=== PATIENT | female | born 1940 | race Caucasian/White ===

== ENCOUNTER → 2016-11-16 | Outpatient (CLI) | payer BC ==
[~2016-11-16] MED LIST: ANTI-ANXIETY MED PO; CHOL1000 PO; CYAN250T PO; DULO-24 PO; LEVO25TA PO; MULT-513 PO; OXYC-57 PO; PROM25TA9 PO
== END | disposition home or self-care (01) ==
LOC: C.MAMM 10:28
PROVIDERS: ATTEND Family Medicine
DX: M72.2 Plantar fascial fibromatosis (principal); M85.88 Other specified disorders of bone density and structure, other site

== ENCOUNTER → 2017-01-26 | Outpatient (CLI) | payer BC ==
--- NOTE | 2017-01-26 15:49 | MAMMOGRAPHY REPORT ---
BILATERAL DIGITAL SCREENING MAMMOGRAM WITH CAD: 01/26/2017 CLINICAL HISTORY: Routine screening. Patient has no complaints. TECHNIQUE: Bilateral CC and MLO views were obtained. Current study was also evaluated with a Comput er Aided Detection (CAD) system. COMPARISON: Comparison is made to exams dated: 11/03/2015 mammogram, 10/28/2014 mammogram, 10/25/2013 ma mmogram, 10/23/2012 mammogram, 10/18/2011 mammogram, and 10/08/2010 mammogram - [facility] enter. BREAST COMPOSITION: There are scattered areas of fibroglandular density in both breasts. FINDINGS: The parenchymal pattern is unchanged. No developing mass, architectural distortion or clu ster of suspicious microcalcifications is seen in either breast. IMPRESSION: ACR BI-RADS CATEGORY 2: BENIGN There is no mammographic evidence of malignancy. A 1 year screening mammogram is recommended. The p atient will receive written notification of the results. Approximately 10% of breast cancers are not detected with mammography. A negative mammographic repor t should not delay biopsy if a clinically suggestive mass is present. Janay Lopez M.D. ay/:01/26/2017 14:23:25 Fireman: Aruna SAMANO(Christos)(Dax), [facility] letter sent: Normal 1/2 BI-RADS Code: ACR BI-RADS Category 2: Benign
== END | disposition home or self-care (01) ==
LOC: C.MAMM 13:34
PROVIDERS: ATTEND Family Medicine
DX: Z12.31 Encounter for screening mammogram for malignant neoplasm of breast (principal)

== ENCOUNTER 2017-02-06 15:07 | Emergency (ER) | payer BC ==
[~2017-02-06] VITALS: Ht 157.5 cm; Wt 76.8 kg
[~2017-02-06 15:07] MED LIST changes: -ANTI-ANXIETY MED PO; -CHOL1000 PO; -CYAN250T PO; -MULT-513 PO; -OXYC-57 PO; -PROM25TA9 PO
[2017-02-06 15:08] VITALS: PULSE 102; TEMP 36.7; O2SAT 96; Ht 157.5 cm; Wt 76.8 kg
[2017-02-06] MEDS ORDERED: MULT-513 PO (15:44)
[2017-02-06] MEDS ORDERED: CYAN250T PO (15:44)
[2017-02-06] MEDS ORDERED: CHOL1000 PO (15:44)
[2017-02-06] MEDS ORDERED: ANTI-ANXIETY MED PO (15:44)
[2017-02-06] MEDS ORDERED: LIDOCAINE/EPINEPHRINE 1% 20 ML VIAL INFIL ONE (15:45)
--- NOTE | 2017-02-06 17:07 | EMERGENCY ROOM VISIT NOTE ---
ED Visit Note I have seen and examined this patient with Vincent Terrazas and generally agree with the treatment plan as discussed. Problem List Medical Problems: (1) Depressive Disorder Nec Status: Chronic (2) Hypothyroidism Nos Status: Chronic (3) Lumbar Disc Displacement Status: Chronic (4) Osteoporosis Status: Chronic Current/Historical Medications Scheduled Cholecalciferol (Vitamin D3), Unknown Dose PO DAILY Cyanocobalamin (Vitamin B-12), 250 MCG PO DAILY Duloxetine HCl (Cymbalta), 1 CAP PO PM Levothyroxine Sodium (Synthroid), 1 TAB PO PM Multivitamins/Minerals (Mvi With Minerals), 1 TAB PO DAILY [Anti-Anxiety Med], 1 TAB PO PRN Allergies Coded Allergies: Sulfa Drugs (Verified Allergy, Intermediate, RASH, 07/16/16) Penicillins (Unverified Allergy, Mild, RASH, 07/16/16) Erythromycin (Unverified Allergy, Unknown, RASH, 07/16/16) Vital Signs Date Time Temp Pulse Resp B/P Pulse Ox O2 Delivery O2 Flow Rate FiO2 02/06/17 15:08 36.7 102 20 96 Room Air Medications Administered Medications (Trade) Dose Ordered Sig/Kenneth Route Start Time Stop Time Status Last Admin Dose Admin Lidocaine/ Epinephrine (Xylocaine/Epine 1% Inj) 20 ml ONE ONCE INFIL 02/06/17 15:45 02/06/17 15:46 DC 02/06/17 15:44 20 ML Departure Information Impression Primary Impression: Left wrist sprain Additional Impressions: Multiple abrasions Fall Laceration of right elbow Dispostion Home / Self-Care Forms HOME CARE DOCUMENTATION FORM, IMPORTANT VISIT INFORMATION Patient Instructions My [facility] Additional Instructions Keep all wounds clean and covered with an antibiotic ointment and dressings until they heal. Sutures in the right elbow will need to be removed in 12-14 days. Follow-up with your family doctor for suture removal. Wear wrist brace on left wrist as needed when active, otherwise perform range of motion exercises to prevent stiffness. Follow-up with an orthopedic surgeon as needed if left wrist pain has not improved within the next week. Problem Qualifiers
--- NOTE | 2017-02-06 17:15 | DIAGNOSTIC IMAGING REPORT ---
LEFT WRIST 4 VIEWS HISTORY: L wrist pain s/p fall COMPARISON: None. FINDINGS: There is no fracture or dislocation. Mild soft tissue swelling. Severe osteoarthritis and periarticular calcifications at the first carpometacarpal joint. The bones are osteopenic. No radiopaque foreign bodies. IMPRESSION: No acute fracture or dislocation within the left wrist. Electronically signed by: Fidel Mercedes M.D. 02/06/2017 5:13 PM Dictated Date/Time: 02/06/2017 5:12 PM
--- NOTE | 2017-02-06 17:17 | EMERGENCY ROOM VISIT NOTE ---
History First contact with patient: 15:19 Chief Complaint: WRIST PAIN Stated Complaint: LEFT WRIST PAIN, MINOR SCRAPES FROM A FALL History of Present Illness The patient is a 76 year old female who presents to the Emergency Room with complaints of injuries after she fell while walking her dog. The patient reports losing her balance and falling, complaining mostly of left wrist pain. She also complains of multiple abrasions and lacerations with a cut on her right elbow that will not stop bleeding. The patient denies any head injury, neck pain or back pain. She does report a small laceration on the nose as well. Tetanus immunization is up-to-date. The patient rates her overall discomfort a 4 out of 10. Review of Systems 10 system review was performed and was negative except for pertinent positives and negatives as indicated in history of present illness Past Medical/Surgical History Medical Problems: (1) Depressive Disorder Nec (2) Hypothyroidism Nos (3) Lumbar Disc Displacement (4) Osteoporosis Family History Unremarkable Social History Smoking Status: Never Smoker Alcohol Use: none Marital Status: Housing Status: lives alone Occupation Status: retired Current/Historical Medications Scheduled Cholecalciferol (Vitamin D3), Unknown Dose PO DAILY Cyanocobalamin (Vitamin B-12), 250 MCG PO DAILY Duloxetine HCl (Cymbalta), 1 CAP PO PM Levothyroxine Sodium (Synthroid), 1 TAB PO PM Multivitamins/Minerals (Mvi With Minerals), 1 TAB PO DAILY [Anti-Anxiety Med], 1 TAB PO PRN Allergies Coded Allergies: Sulfa Drugs (Verified Allergy, Intermediate, RASH, 07/16/16) Penicillins (Unverified Allergy, Mild, RASH, 07/16/16) Erythromycin (Unverified Allergy, Unknown, RASH, 07/16/16) Physical Exam Vital Signs Date Time Temp Pulse Resp B/P Pulse Ox O2 Delivery O2 Flow Rate FiO2 02/06/17 15:08 36.7 102 20 96 Room Air Physical Exam CONSTITUTIONAL: Healthy and well nourished. Alert and oriented X 3 with positive affect. Patient does not appear in any acute distress. GCS 15. HEENT: Examination shows a small laceration on the bridge of the nose. Pupils equal, round and reactive. No tenderness to palpation of the facial bones. No hemotympanum, epistaxis, raccoon's eyes or Conteh sign. NECK: Full active range of motion without discomfort. RESPIRATORY: Clear to auscultation bilaterally with no wheezing, crackles, rhonchi or stridor. CARDIOVASCULAR: Regular rate and rhythm with no murmurs, rubs or gallops. GASTROINTESTINAL: Bowel sounds present in all quadrants. Soft and nontender to palpation. MUSCULOSKELETAL: Examination shows mild edema of the left wrist without any obvious open wounds or deformity. She also has generalized tenderness to palpation about the entire wrist. Negative anatomic snuffbox tenderness. No worsening pain with flexion or extension of the elbow. Examination of the right elbow shows a 1 m posterior laceration with mild bleeding. She otherwise has multiple abrasions to the elbows, bilateral knees and hands. No tenderness to palpation through the thoracolumbar spine or ribs. His pulses are intact. INTEGUMENTARY: No rash or other significant dermatologic conditions noted. NEUROLOGIC: Bilateral hands are sensory intact. Medical Decision & Procedures ER Provider Diagnostic Interpretation: My interpretation of left wrist x-rays does not show any obvious fractures or dislocations. Radiologist report is as follows: LEFT WRIST 4 VIEWS HISTORY: L wrist pain s/p fall COMPARISON: None. FINDINGS: There is no fracture or dislocation. Mild soft tissue swelling. Severe osteoarthritis and periarticular calcifications at the first carpometacarpal joint. The bones are osteopenic. No radiopaque foreign bodies. IMPRESSION: No acute fracture or dislocation within the left wrist. Medications Administered Medications (Trade) Dose Ordered Sig/Kenneth Route Start Time Stop Time Status Last Admin Dose Admin Lidocaine/ Epinephrine (Xylocaine/Epine 1% Inj) 20 ml ONE ONCE INFIL 02/06/17 15:45 02/06/17 15:46 DC 02/06/17 15:44 20 ML Procedure Right elbow laceration repair was performed under local anesthesia after receiving verbal consent from the patient. Using lidocaine 1% with epinephrine , good local anesthesia was administered. The tissue was then irrigated with normal saline, and approximated with a single 4-0 nylon simple interrupted suture. A bacitracin pressure dressing was applied. ED Course Patient history and physical exam were performed. Nurse's notes were reviewed. The patient refused any analgesics. X-rays of the left wrist were performed, and my review did not show any acute fractures or subluxations. While awaiting for the radiologist report, right elbow laceration repair was performed under local anesthesia. The patient did have a few episodes of bleeding through the gauze before a nice pressure dressing was applied. The patient was also seen and examined by Dr. Maradiaga, ED attending physician, who agrees with current workup. While we were awaiting the final radiologist's report for the left wrist, the patient reported that she had to go for a dinner appointment, and eloped from the emergency department before I could provide any additional instructions, wrist splint or follow-up instructions. X-ray findings were normal. Prior to elopement, I did provide verbal wound care instructions, including following up with her family doctor for suture removal in 12-14 days. Medical Decision Impression Primary Impression: Left wrist sprain Additional Impressions: Multiple abrasions Fall Laceration of right elbow Departure Information Dispostion Home / Self-Care Forms HOME CARE DOCUMENTATION FORM, IMPORTANT VISIT INFORMATION Patient Instructions My [email or web address] Additional Instructions Keep all wounds clean and covered with an antibiotic ointment and dressings until they heal. Sutures in the right elbow will need to be removed in 12-14 days. Follow-up with your family doctor for suture removal. Wear wrist brace on left wrist as needed when active, otherwise perform range of motion exercises to prevent stiffness. Follow-up with an orthopedic surgeon as needed if left wrist pain has not improved within the next week. Problem Qualifiers Primary Impression: Left wrist sprain Encounter type: initial encounter Qualified Codes: S63.502A - Unspecified sprain of left wrist, initial encounter Additional Impressions: Fall Encounter type: initial encounter Qualified Codes: W19.XXXA - Unspecified fall, initial encounter Laceration of right elbow Encounter type: initial encounter Qualified Codes: S51.011A - Laceration without foreign body of right elbow, initial encounter
== END 2017-02-06 17:30 | disposition home or self-care (01) ==
LOC: C.EDB 15:08 → C.EDD 17:30
DX: S63.502A Unspecified sprain of left wrist, initial encounter (principal); S51.011A Laceration without foreign body of right elbow, initial encounter; W01.0XXA Fall on same level from slipping, tripping and stumbling without subsequent striking against object, initial encounter; F32.9 Major depressive disorder, single episode, unspecified; E03.9 Hypothyroidism, unspecified; M81.0 Age-related osteoporosis without current pathological fracture; M51.26 Other intervertebral disc displacement, lumbar region; Z79.899 Other long term (current) drug therapy; Z88.0 Allergy status to penicillin; Z88.2 Allergy status to sulfonamides; Z88.3 Allergy status to other anti-infective agents

== ENCOUNTER → 2018-01-07 | Outpatient (CLI) | payer BC ==
[~2018-01-07] MED LIST changes: +ANTI-ANXIETY MED PO; +CHOL1000 PO; +CYAN250T PO; +MULT-513 PO
--- NOTE | 2018-01-07 13:35 | DIAGNOSTIC IMAGING REPORT ---
L SHOULDER MIN 2 VIEWS ROUTINE CLINICAL HISTORY: SHOULDER PAIN COMPARISON: None DISCUSSION: No fractures or dislocations are visualized. Degenerative changes are present within the acromioclavicular joint. There are mild degenerative changes within the glenohumeral joint. IMPRESSION: 1. Mild degenerative change. No fractures or dislocations identified. Electronically signed by: Miky Moreno M.D. 01/07/2018 1:33 PM Dictated Date/Time: 01/07/2018 1:33 PM
== END | disposition home or self-care (01) ==
LOC: C.RAD 12:51
PROVIDERS: ATTEND Family Medicine
DX: M25.519 Pain in unspecified shoulder (principal)

== ENCOUNTER → 2018-04-25 | Outpatient (CLI) | payer BC | END | disposition home or self-care (01) | LOC: C.RDSM 11:35 | PROVIDERS: ATTEND Orthopaedic Surgery | DX: M79.642 Pain in left hand (principal) ==

== ENCOUNTER 2018-11-13 12:37 | Inpatient (IN) ==
[2018-11-13] MEDS ORDERED: MoRPHine SULFATE 4 MG/ML 1 ML CARP\\VIAL IV STA (13:19)
[2018-11-13] MEDS ORDERED: ONDANSETRON INJ 2 MG/ML 2 ML VIAL IV STA ×2 (13:19→15:13)
[2018-11-13 14:03] LABS: Hematocrit (blood only) 43.3 % (37-47); Hemoglobin 14.1 g/dL (12.0-16.0); Mean Corpuscular Hgb Conc 32.6 g/dL (32-36); Mean Corpuscular Volume 90.8 fL (80-100); Mean Platelet Volume 12.5 fL (7.4-10.4); Platelet Count 188 K/uL (130-400); RDW Coefficient of Variation 14.6 % (11.5-14.5); RDW Standard Deviation 48.2 fL (36.4-46.3); Red Blood Count 4.77 M/uL (4.2-5.4)
[2018-11-13 14:21] LABS: BUN Creatinine Ratio 18.7 (10-20); Creatinine Clr Calc Pharmacy 67.2 ml/min; Est GFR (African American) 97.9; Est GFR (Non-African American) 84.4; Potassium 3.9 mmol/L (3.5-5.1)
--- NOTE | 2018-11-13 14:38 | XRay Report ---
XR chest 1V portable HISTORY: Pre-op COMPARISON: Chest 07/29/2016. FINDINGS: There are low lung volumes. Hazy appears to the left lung base persists and favors prominen t mediastinal fat. Otherwise, the lungs are clear. No pleural effusions. No pneumothorax. The heart i s normal in size. IMPRESSION: No acute process. Electronically signed by: Fidel Mercedes M.D. 11/13/2018 2:37 PM
--- NOTE | 2018-11-13 14:39 | XRay Report ---
XR ankle LT min 3V routine CLINICAL HISTORY: Left ankle pain status post trauma COMPARISON: None DISCUSSION: There are acute fractures of the medial malleolus and distal fibula. There is disruption of the ankle mortise with posterior lateral displacement of the talus with respect to the tibia. IMPRESSION: Bimalleolar fracture subluxation. Electronically signed by: Miky Moreno M.D. 11/13/2018 2:38 PM
[2018-11-13] MEDS ORDERED: SODIUM CHLORIDE 0.9% 1000ML 500 ML IV ONE (14:40)
--- NOTE | 2018-11-13 14:45 | XRay Report ---
XR tibia fibula LT 2V CLINICAL HISTORY: L ankle/leg pain COMPARISON STUDY: Left ankle 11/13/2018. FINDINGS: Bimalleolar left ankle fracture with posterior medial dislocation of the tibiotalar joint. This is better appreciated on the same day ankle radiograph. The proximal to mid fibula and proximal to mid tibia are intact. IMPRESSION: 1. Left ankle bimalleolar fracture/dislocation. This is better appreciated on the same day ankle radi ograph. 2. The proximal to mid fibula and tibia are intact. Electronically signed by: Fidel Mercedes M.D. 11/13/2018 2:44 PM
[2018-11-13] MEDS ORDERED: PROPOFOL IV EMULSION 10 MG/ML 20 ML VIAL IV ONE (15:13)
[2018-11-13] MEDS ORDERED: PROPOFOL IV EMULSION 10 MG/ML 20 ML VIAL IV STA (15:13)
--- NOTE | 2018-11-13 15:15 | Emergency Department Note ---
ED Visit Note . Pre Sedation Assessment Vital Signs Temp Pulse Pulse Resp BP BP BP 11/13/18 17:15 37.1 C 76 16 126/77 11/13/18 16:41 20 118/77 11/13/18 16:36 78 138/61 11/13/18 16:31 60 124/67 11/13/18 16:30 69 11/13/18 16:26 63 128/58 L 11/13/18 16:21 82 141/64 H 11/13/18 16:16 140/74 11/13/18 16:12 121/62 11/13/18 16:06 69 144/61 H 11/13/18 16:01 80 158/80 H 11/13/18 16:00 82 11/13/18 15:56 75 156/67 H 11/13/18 15:51 152/69 H 11/13/18 15:46 104 H 143/69 H 11/13/18 15:40 64 147/70 H 11/13/18 15:31 63 152/80 H 11/13/18 15:30 72 11/13/18 15:28 80 135/85 11/13/18 15:01 76 15 118/98 11/13/18 15:00 71 20 11/13/18 14:31 66 8 L 171/104 H 11/13/18 14:30 75 11 L 11/13/18 14:27 106 H 20 184/103 H 11/13/18 14:24 80 12 184/103 H 11/13/18 14:01 80 18 157/102 H 11/13/18 14:00 78 17 11/13/18 13:39 63 17 11/13/18 13:36 67 22 164/90 H 11/13/18 12:56 36.8 C 70 20 146/84 H Pulse Ox 11/13/18 17:15 92 11/13/18 16:41 95 11/13/18 16:36 93 11/13/18 16:31 94 11/13/18 16:30 94 11/13/18 16:26 94 11/13/18 16:21 96 11/13/18 16:16 100 11/13/18 16:12 99 11/13/18 16:06 98 11/13/18 16:01 99 11/13/18 16:00 99 11/13/18 15:56 98 11/13/18 15:51 98 11/13/18 15:46 97 11/13/18 15:40 99 11/13/18 15:31 98 11/13/18 15:30 98 11/13/18 15:28 99 11/13/18 15:01 11/13/18 15:00 92 11/13/18 14:31 96 11/13/18 14:30 95 11/13/18 14:27 96 11/13/18 14:24 90 11/13/18 14:01 95 11/13/18 14:00 95 11/13/18 13:39 96 11/13/18 13:36 93 11/13/18 12:56 96 Pre-Sedation Airway Assessment Smoking Status: Former smoker Notes The planned sedation has been discussed with the patient. Informed Consent was obtained. I have identified the patient, determined the appropriateness of sedation and have assessed the patient immediately prior to the procedure. All medicine(s) and interventions are by my order. No cardiac or lung medical history noted. NPO 8 hours. No prior anesthetic complications. Mallampati 2. ASA class II given age.
--- NOTE | 2018-11-13 15:16 | Emergency Department Note ---
ED Visit Note . Post Sedation Assessment Vital Signs Temp Pulse Pulse Resp BP BP BP 11/13/18 17:15 37.1 C 76 16 126/77 11/13/18 16:41 20 118/77 11/13/18 16:36 78 138/61 11/13/18 16:31 60 124/67 11/13/18 16:30 69 11/13/18 16:26 63 128/58 L 11/13/18 16:21 82 141/64 H 11/13/18 16:16 140/74 11/13/18 16:12 121/62 11/13/18 16:06 69 144/61 H 11/13/18 16:01 80 158/80 H 11/13/18 16:00 82 11/13/18 15:56 75 156/67 H 11/13/18 15:51 152/69 H 11/13/18 15:46 104 H 143/69 H 11/13/18 15:40 64 147/70 H 11/13/18 15:31 63 152/80 H 11/13/18 15:30 72 11/13/18 15:28 80 135/85 11/13/18 15:01 76 15 118/98 11/13/18 15:00 71 20 11/13/18 14:31 66 8 L 171/104 H 11/13/18 14:30 75 11 L 11/13/18 14:27 106 H 20 184/103 H 11/13/18 14:24 80 12 184/103 H 11/13/18 14:01 80 18 157/102 H 11/13/18 14:00 78 17 11/13/18 13:39 63 17 11/13/18 13:36 67 22 164/90 H 11/13/18 12:56 36.8 C 70 20 146/84 H Pulse Ox 11/13/18 17:15 92 11/13/18 16:41 95 11/13/18 16:36 93 11/13/18 16:31 94 11/13/18 16:30 94 11/13/18 16:26 94 11/13/18 16:21 96 11/13/18 16:16 100 11/13/18 16:12 99 11/13/18 16:06 98 11/13/18 16:01 99 11/13/18 16:00 99 11/13/18 15:56 98 11/13/18 15:51 98 11/13/18 15:46 97 11/13/18 15:40 99 11/13/18 15:31 98 11/13/18 15:30 98 11/13/18 15:28 99 11/13/18 15:01 11/13/18 15:00 92 11/13/18 14:31 96 11/13/18 14:30 95 11/13/18 14:27 96 11/13/18 14:24 90 11/13/18 14:01 95 11/13/18 14:00 95 11/13/18 13:39 96 11/13/18 13:36 93 11/13/18 12:56 96 Post Sedation Plan On clinical assessment, the patient appears to have tolerated the sedation without complications. Patient is recovering as anticipated. Patient will continue to be monitored by nursing and may be discharged when sedation discharge criteria are met per below protocol. Upon Completions of procedure and additional 15 minutes continue every 5 minute vital signs and the P.A.R. score; then discharge to a Phase I or Fast Track to Phase II per the following guidelines: * Discharge Patient to appropriate Phase II area if PAR is 8 or greater or return to pre- procedure baseline. The post - procedure orders will be as directed. * If PAR score is less than 8 or not return to pre-procedure baseline then patient will follow Phase I monitoring till PAR is reached for Phase II. The Phase I may be done in procedure room or may call to secure a Phase I area. * If naloxone or flumazenil are used for reversal, hold in Phase I for continued monitoring from when last reversal dose was given for a minimum of 60 minutes or longer pending the nurse and/or physician discretion of patient condition before discharge to Phase II. Please call the Sedation Physician to re-evaluate and complete post-note for discharge to Phase II area. Do NOT discharge from procedure sedation or Phase 1 until post- sedation evaluation note is complete by procedure /sedation MD Sedation Discharge Instructions to be given to the patient at discharge to home.
--- NOTE | 2018-11-13 15:16 | Emergency Department Note ---
ED Visit Note Attending Attestation: I Ady De Jesus MD independently saw and evaluated this patient and agree with history and physical is otherwise documented by the physician department assistant. See their note for full details. .
[2018-11-13] MEDS ORDERED: DiphenhydrAMINE HCL 50 MG/ML VIAL IV PRN (15:46)
[2018-11-13] MEDS ORDERED: METOCLOPRAMIDE HCL INJ 5 MG/ML 2 ML VIAL IV PRN (15:46)
[2018-11-13] MEDS ORDERED: ONDANSETRON INJ 2 MG/ML 2 ML VIAL IV PRN (15:46)
[2018-11-13] MEDS ORDERED: ALUMINUM/MAGNESIUM SUSP 30 ML UDC PO PRN (15:51)
[2018-11-13] MEDS ORDERED: MoRPHine SULFATE 4 MG/ML 1 ML CARP\\VIAL IV PRN (16:00)
--- NOTE | 2018-11-13 16:04 | XRay Report ---
XR ankle LT 2V CLINICAL HISTORY: post reduction FRACTURE COMPARISON: 11/13/2018 DISCUSSION: There is been interval reduction of the previously described bimalleolar fracture subluxa tion. There is been application of a fiberglass cast. The distal fibular fracture demonstrates 4 mm o f maximal displacement. The medial malleolar fracture is in near normal anatomic alignment. Very donya r widening of the medial ankle mortise cannot be excluded. IMPRESSION: Interval reduction of the bimalleolar fracture subluxation with application of a fibergla ss cast Electronically signed by: Miky Moreno M.D. 11/13/2018 4:03 PM
--- NOTE | 2018-11-13 16:31 | History & Physical Report ---
Date of Service November 13, 2018 Assessment & Plan (1) Bimalleolar fracture of left ankle: Patient had obvious fracture dislocation of left ankle that was reduced by Dr. Ji Courtney (see his procedure noted0 Splint applied after good reduction obtained. Patient was admitted for pain control, gait training with assisted device (PT) and CT of ankle Patient will be followed by Dr. Ji Mitchell. He will see patient in hosptial tomorrow. She does not need to be NPO She will most likely not have surgical intervention until sometime next week. History of Present Illness Chief Complaint: Left ankle fracture dislocation Primary Care Provider: Morelia Floyd, DO This 78 yo F presents to ED today with severe ankle pain with obvious deformity. Injury occurred when she slipped on the ice while walking her dogs this AM. Patient states that she was unable to stand or ambulate after the injury occurred. Patient has no other complaint. She denies CP, SOB, nausea, vomiting, LOC, syncope, vertigo, head trauma, neck pain, numbness/tingling in her Left ankle/foot. Allergies Allergy/AdvReac Type Severity Reaction Status Date / Time Sulfa (Sulfonamide Allergy Intermediate RASH Verified 07/16/16 11:19 Antibiotics) Penicillins Allergy Mild RASH Unverified 07/16/16 11:19 erythromycin base Allergy Unknown RASH Unverified 07/16/16 11:19 Home Medications Home Medications Medication Instructions Recorded Confirmed Type Duloxetine HCl (Cymbalta) 1 cap PO PM 30 Days #0 cap 07/16/16 History LEVOTHYROXINE SODIUM (SYNTHROID) 1 tab PO PM #0 tab 07/16/16 History ANTI-ANXIETY MED 1 tab PO PRN #0 02/06/17 History CHOLECALCIFEROL (VITAMIN D3) PO DAILY 90 Days #0 tab 02/06/17 History Cyanocobalamin (Vitamin B-12) 250 mcg PO DAILY #0 tab 02/06/17 History Multivitamins/Minerals (Mvi With 1 tab PO DAILY #0 tab 02/06/17 History Minerals) Past Med/Surg History Medical History Anxiety Hypothyroidism Surgical History No significant past surgical history Social History Feels Safe at Home: Yes Smoking Status: Former smoker Hx Substance Use: No Review of Systems All systems reviewed & are unremarkable except as noted in HPI & below Physical Exam 2 Vital Signs (Past 24 Hours): Last Vital Signs Temp 36.8 C 11/13/18 12:56 Pulse 82 11/13/18 16:21 Resp 15 11/13/18 15:01 BP 141/64 H 11/13/18 16:21 Pulse Ox 96 11/13/18 16:21 Physical Exam: Left ankle: obvious deformity of left ankle with edema and ecchymosis noted over medial and lateral malleoli. No ankle ROM. Able to move toes and depict light sensation to touch in L4,5 and S1 dermatomes. Tender to palpation over entire ankle. No open skin areas. Calf soft and supple. NV intact in Left LE. Cap refill < 2 seconds. Ulysses and posterior pulses easily palpable. Code Status & VTE Plan VTE Prophylaxis Plan VTE Prophylaxis will be ordered: Yes Critical Care Time Critical Care Time: Yes Total Critical Care Time: 25
--- NOTE | 2018-11-13 16:45 | Emergency Department Note ---
History of Present Illness General Chief complaint: Ankle Pain Stated complaint: FALL,LEFT ANKLE PAIN Time Seen by Provider: 11/13/18 13:06 History of Present Illness Maximum Pain Intensity: 10 78-year-old female who presents to the emergency department with her partner for evaluation of a left ankle injury. The patient reports that she was walking her dogs when she slipped on ice and fell, twisting her ankle. The patient was at a park at the time. A bystander was able to help her get back into her vehicle, and she drove home. The patient was then brought here to the emergency department by her partner for severe pain. The patient reports that she is unable to apply any weight to the foot. She denies any other injuries from this incident, and rates her pain a 10 out of 10. She reports that the foot was pointed the wrong direction after she fell. She currently denies paresthesias or numbness of the left foot or toes that she has noticed. Home Medications Home Medications Medication Instructions Recorded Confirmed Type clonazepam 1 mg PO BID PRN 11/13/18 11/13/18 History duloxetine 60 mg PO DAILY 11/13/18 11/13/18 History levothyroxine 112 mcg PO DAILY 11/13/18 11/13/18 History Allergies Allergy/AdvReac Type Severity Reaction Status Date / Time Sulfa (Sulfonamide Allergy Intermediate RASH Verified 07/16/16 11:19 Antibiotics) Penicillins Allergy Mild RASH Unverified 07/16/16 11:19 erythromycin base Allergy Unknown RASH Unverified 07/16/16 11:19 Past Med/Surg History Medical History Anxiety Hypothyroidism Surgical History No significant past surgical history (Inactive) History of x 2 Social History marital status details: ; now in relationship again Current Living Situation: Significant Other Current Living Situation Comment: lives in [place] current occupational status: retired Other Information That Helps Us Care for You: No other: worked at [employer] in [place] Office Feels Safe at Home: Yes Safety Concerns: Feels Safe At This Time Smoking Status: Former smoker Do You Dip or Chew Tobacco: No Smoking End Date: 09/27 ppd x 30 years Second Hand Exposure: No Tobacco Cessation Education Requested by Patient: No Hx Alcohol Use: No Hx Substance Use: No Beliefs That Will Affect Care: None Preferred Language: Singaporean Communication Ability: Effective Bottle Caser Required: No Review of Systems HEENT: Denies dizziness, visual problems, hearing loss, tinnitus. Denies difficulty swallowing or oral lesions. PULMONARY: Denies cough, shortness of breath, sputum production or hemoptysis. CARDIOVASCULAR: Denies chest pain, palpitations, dyspnea on exertion, orthopnea or peripheral edema. GASTROINTESTINAL: Denies diarrhea, constipation, nausea, vomiting, or abdominal pain. GENITOURINARY: Denies dysuria, frequency, urgency or nocturia. NEUROLOGIC: Denies history of epilepsy, CVA, TIA or chronic headaches. MUSCULOSKELETAL: Denies history of joint tenderness/swelling. SKIN: Denies rashes or lesions. PSYCHIATRIC: History of anxiety. ENDOCRINE: Denies history of diabetes. Reports history of hypothyroidism. . Physical Exam Vital Signs Vital Signs - 24 hr 11/13/18 12:56 11/13/18 13:36 11/13/18 13:39 Temperature 36.8 C Temperature Source Oral Sepsis Recent Fever Within 48 Hours No Sepsis New/Unexplained Change in Mental Status No Sepsis Action Taken by Nursing No Action Required Pulse Rate 70 67 63 Pulse Rate [Left Finger] Respiratory Rate 20 22 17 Respiratory Effort / Characteristics Non-Labored Spontaneous Respiratory Depth Respiratory Pattern Blood Pressure 146/84 H 164/90 H Blood Pressure [Left Arm] Blood Pressure [Right Arm] Blood Pressure Mean 104 114 Blood Pressure Mean [Left Arm] Blood Pressure Mean [Right Arm] Blood Pressure Position [Right Arm] Pulse Oximetry 96 93 96 Oxygen Delivery Method Room Air Oxygen Flow Rate 11/13/18 14:00 11/13/18 14:01 11/13/18 14:24 Temperature Temperature Source Sepsis Recent Fever Within 48 Hours Sepsis New/Unexplained Change in Mental Status Sepsis Action Taken by Nursing Pulse Rate 78 80 80 Pulse Rate [Left Finger] Respiratory Rate 17 18 12 Respiratory Effort / Characteristics Respiratory Depth Respiratory Pattern Blood Pressure 157/102 H 184/103 H Blood Pressure [Left Arm] Blood Pressure [Right Arm] Blood Pressure Mean 120 130 Blood Pressure Mean [Left Arm] Blood Pressure Mean [Right Arm] Blood Pressure Position [Right Arm] Pulse Oximetry 95 95 90 Oxygen Delivery Method Oxygen Flow Rate 11/13/18 14:27 11/13/18 14:30 11/13/18 14:31 Temperature Temperature Source Sepsis Recent Fever Within 48 Hours Sepsis New/Unexplained Change in Mental Status Sepsis Action Taken by Nursing Pulse Rate 75 66 Pulse Rate [Left Finger] 106 H Respiratory Rate 20 11 L 8 L Respiratory Effort / Characteristics Non-Labored Respiratory Depth Normal Respiratory Pattern Blood Pressure 171/104 H Blood Pressure [Left Arm] 184/103 H Blood Pressure [Right Arm] Blood Pressure Mean 126 Blood Pressure Mean [Left Arm] 130 Blood Pressure Mean [Right Arm] Blood Pressure Position [Right Arm] Pulse Oximetry 96 95 96 Oxygen Delivery Method Room Air Oxygen Flow Rate 11/13/18 15:00 11/13/18 15:01 11/13/18 15:28 Temperature Temperature Source Sepsis Recent Fever Within 48 Hours Sepsis New/Unexplained Change in Mental Status Sepsis Action Taken by Nursing Pulse Rate 71 76 80 Pulse Rate [Left Finger] Respiratory Rate 20 15 Respiratory Effort / Characteristics Respiratory Depth Respiratory Pattern Blood Pressure 118/98 135/85 Blood Pressure [Left Arm] Blood Pressure [Right Arm] Blood Pressure Mean 104 101 Blood Pressure Mean [Left Arm] Blood Pressure Mean [Right Arm] Blood Pressure Position [Right Arm] Pulse Oximetry 92 99 Oxygen Delivery Method Nasal Cannula Oxygen Flow Rate 2 11/13/18 15:30 11/13/18 15:31 11/13/18 15:40 Temperature Temperature Source Sepsis Recent Fever Within 48 Hours Sepsis New/Unexplained Change in Mental Status Sepsis Action Taken by Nursing Pulse Rate 72 63 64 Pulse Rate [Left Finger] Respiratory Rate Respiratory Effort / Characteristics Respiratory Depth Respiratory Pattern Blood Pressure 152/80 H 147/70 H Blood Pressure [Left Arm] Blood Pressure [Right Arm] Blood Pressure Mean 104 95 Blood Pressure Mean [Left Arm] Blood Pressure Mean [Right Arm] Blood Pressure Position [Right Arm] Pulse Oximetry 98 98 99 Oxygen Delivery Method Nasal Cannula Nasal Cannula Nasal Cannula Oxygen Flow Rate 2 2 2 11/13/18 15:46 11/13/18 15:51 11/13/18 15:56 Temperature Temperature Source Sepsis Recent Fever Within 48 Hours Sepsis New/Unexplained Change in Mental Status Sepsis Action Taken by Nursing Pulse Rate 104 H 75 Pulse Rate [Left Finger] Respiratory Rate Respiratory Effort / Characteristics Respiratory Depth Respiratory Pattern Blood Pressure 143/69 H 152/69 H 156/67 H Blood Pressure [Left Arm] Blood Pressure [Right Arm] Blood Pressure Mean 93 96 96 Blood Pressure Mean [Left Arm] Blood Pressure Mean [Right Arm] Blood Pressure Position [Right Arm] Pulse Oximetry 97 98 98 Oxygen Delivery Method Nasal Cannula Nasal Cannula Nasal Cannula Oxygen Flow Rate 2 2 2 11/13/18 16:00 11/13/18 16:01 11/13/18 16:06 Temperature Temperature Source Sepsis Recent Fever Within 48 Hours Sepsis New/Unexplained Change in Mental Status Sepsis Action Taken by Nursing Pulse Rate 82 80 69 Pulse Rate [Left Finger] Respiratory Rate Respiratory Effort / Characteristics Respiratory Depth Respiratory Pattern Blood Pressure 158/80 H 144/61 H Blood Pressure [Left Arm] Blood Pressure [Right Arm] Blood Pressure Mean 106 88 Blood Pressure Mean [Left Arm] Blood Pressure Mean [Right Arm] Blood Pressure Position [Right Arm] Pulse Oximetry 99 99 98 Oxygen Delivery Method Room Air Room Air Room Air Oxygen Flow Rate 11/13/18 16:12 11/13/18 16:16 11/13/18 16:21 Temperature Temperature Source Sepsis Recent Fever Within 48 Hours Sepsis New/Unexplained Change in Mental Status Sepsis Action Taken by Nursing Pulse Rate 82 Pulse Rate [Left Finger] Respiratory Rate Respiratory Effort / Characteristics Respiratory Depth Respiratory Pattern Blood Pressure 121/62 140/74 141/64 H Blood Pressure [Left Arm] Blood Pressure [Right Arm] Blood Pressure Mean 81 96 89 Blood Pressure Mean [Left Arm] Blood Pressure Mean [Right Arm] Blood Pressure Position [Right Arm] Pulse Oximetry 99 100 96 Oxygen Delivery Method Room Air Room Air Room Air Oxygen Flow Rate 11/13/18 16:26 11/13/18 16:30 11/13/18 16:31 Temperature Temperature Source Sepsis Recent Fever Within 48 Hours Sepsis New/Unexplained Change in Mental Status Sepsis Action Taken by Nursing Pulse Rate 63 69 60 Pulse Rate [Left Finger] Respiratory Rate Respiratory Effort / Characteristics Respiratory Depth Respiratory Pattern Blood Pressure 128/58 L 124/67 Blood Pressure [Left Arm] Blood Pressure [Right Arm] Blood Pressure Mean 81 86 Blood Pressure Mean [Left Arm] Blood Pressure Mean [Right Arm] Blood Pressure Position [Right Arm] Pulse Oximetry 94 94 94 Oxygen Delivery Method Oxygen Flow Rate 11/13/18 16:36 11/13/18 16:41 11/13/18 17:15 Temperature 37.1 C Temperature Source Oral Sepsis Recent Fever Within 48 Hours Sepsis New/Unexplained Change in Mental Status Sepsis Action Taken by Nursing Pulse Rate 78 Pulse Rate [Left Finger] 76 Respiratory Rate 20 16 Respiratory Effort / Characteristics Non-Labored Spontaneous Respiratory Depth Normal Respiratory Pattern Regular Blood Pressure 138/61 118/77 Blood Pressure [Left Arm] Blood Pressure [Right Arm] 126/77 Blood Pressure Mean 86 90 Blood Pressure Mean [Left Arm] Blood Pressure Mean [Right Arm] 93 Blood Pressure Position [Right Arm] Lying Pulse Oximetry 93 95 92 Oxygen Delivery Method Room Air Oxygen Flow Rate CONSTITUTIONAL: Healthy and well nourished. Alert and oriented X 3 with positive affect. Patient appears in severe discomfort. HEENT: Normocephalic, atraumatic. Pupils equal, round and reactive. NECK: Full active range of motion without discomfort. RESPIRATORY: Clear to auscultation bilaterally with no wheezing, crackles, rhonchi or stridor. MUSCULOSKELETAL: Examination shows the patient still wearing her clothing with boot and socks in place. With assistance, the patient was moved to an examination bed, and her boot and sock were removed to show significant skin tenting and ecchymosis over the anteromedial ankle region. An obvious deformity is noted. Capillary refill was intact. Patient has mild tenderness through the proximal leg as well. She has no tenderness to palpation through the knee joint. INTEGUMENTARY: No rash or other significant dermatologic conditions noted. NEUROLOGIC: Left foot and toes are sensory intact. Course Patient history and physical exam were performed. Nurse's notes were reviewed. Vital signs were reviewed, showing an initial elevated blood pressure of 146/ 84. The patient appeared in severe discomfort. After positioning the patient on the bed, and exposing the ankle, IV access was established, and baseline labs were drawn. ECG and portable chest x-ray were also ordered for preoperative purposes and were grossly normal. Baseline labs were also performed and grossly normal. X-rays of the left ankle confirms a bimalleolar ankle fracture dislocation. I did discuss findings with the patient. She specifically requested follow-up with [facility], and did not want to be seen by any other orthopedic practices. She has been a patient at their office in the past. The case was also discussed with Dr. De Jesus, ED attending physician. I initially spoke with Dr. Courtney, who indicated that he we discussed the case with his colleagues as he will be out of town. He did recommend ankle fracture reduction and splinting. The patient was examined as well by Dr. De Jesus, who recommended conscious sedation for this procedure. While awaiting for conscious sedation to be set up, the patient was seen by Gucci Lucas PA-C with [facility]. The reduction was eventually performed by Dr. Courtney, and conscious sedation performed by Dr. De Jesus. The patient will be admitted under the care of Dr. Mitchell in the same practice. Please see all dictations for further details of conscious sedation, reduction and orthopedic management. Administered Medications Duloxetine HCl (Cymbalta) 60 mg PO PM JEANMARIE Stop: 12/13/18 20:59 Last Admin: 11/13/18 20:12 Dose: 60 mg Sodium Chloride (Nss 1000ml) 1,000 mls @ 150 mls/hr IV .[id number] JEANMARIE Stop: 12/13/18 18:29 Last Admin: 11/13/18 18:36 Dose: 150 mls/hr Levothyroxine Sodium (Synthroid) 112 mcg PO PM JEANMARIE Stop: 12/13/18 20:59 Last Admin: 11/13/18 20:12 Dose: 112 mcg Oxycodone/Acetaminophen (Percocet 5mg/325mg) 1 - 2 tab PO Q4H PRN PRN Reason: Pain Stop: 11/27/18 15:45 Last Admin: 11/13/18 17:48 Dose: 2 tab Discontinued Medications Sodium Chloride (Nss 1000ml) 500 mls @ 999 mls/hr IV .Q31M ONE Stop: 11/13/18 15:10 Last Infusion: 11/13/18 18:03 Dose: 0 mls/hr Admin: 11/13/18 15:39 Dose: 999 mls/hr Morphine Sulfate (Morphine Sulfate) 4 mg IV NOW STA Stop: 11/13/18 13:20 Last Admin: 11/13/18 13:53 Dose: 4 mg Ondansetron HCl (Zofran) 4 mg IV NOW STA Stop: 11/13/18 13:20 Last Admin: 11/13/18 13:52 Dose: 4 mg Ondansetron HCl (Zofran) 4 mg IV NOW STA Stop: 11/13/18 15:14 Last Admin: 11/13/18 15:39 Dose: 4 mg Propofol (Diprivan) 40 mg IV TODAY@1513 ONE Stop: 11/13/18 15:14 Last Admin: 11/13/18 16:49 Dose: Not Given Medical Decision Making Medical Records Attestation: I reviewed the patient's medical records. Home Medications Current Medication List: was personally reviewed by me Laboratory Data Attestation: I reviewed the patient's lab results. Result diagrams: 11/13/18 13:50 11/13/18 13:50 Lab Results 11/13/18 11/13/18 11/13/18 Range/Units 13:50 13:50 13:50 WBC 9.40 (4.8-10.8) K/uL RBC 4.77 (4.2-5.4) M/uL Hgb 14.1 (12.0-16.0) g/dL Hct 43.3 (37-47) % MCV 90.8 (80-100) fL MCH 29.6 (25-34) pg MCHC 32.6 (32-36) g/dL RDW Std Deviation 48.2 H (36.4-46.3) fL RDW Coeff of Mata 14.6 H (11.5-14.5) % Plt Count 188 (130-400) K/uL MPV 12.5 H (7.4-10.4) fL Sodium 137 (136-145) mmol/L Potassium 3.9 (3.5-5.1) mmol/L Chloride 103 (98-107) mmol/L Carbon Dioxide 26 (21-32) mmol/L Anion Gap 7.0 (3-11) BUN 12 (7-18) mg/dl Creatinine 0.65 (0.6-1.2) mg/dl Est Cr Clr Drug Dosing 67.2 ml/min Est GFR ( Amer) 97.9 Est GFR (Non-Af Amer) 84.4 BUN/Creatinine Ratio 18.7 (10-20) Glucose 109 H (70-99) mg/dl Calcium 9.0 (8.5-10.1) mg/dl TSH 0.398 Cancelled (0.300-4.500) uIu/ml Imaging Data Attestation: I personally reviewed and interpreted this imaging study as follows : My Impression: My interpretation of an initial left ankle x-ray shows a bimalleolar fracture dislocation. No proximal tibia or fibular component is noted. Radiologist report was reviewed. My interpretation of a portable chest x-ray does not show any pneumothorax, cardiac prominence, widened mediastinum or consolidations. Radiologist's Impression: XR ankle LT min 3V routine CLINICAL HISTORY: Left ankle pain status post trauma COMPARISON: None DISCUSSION: There are acute fractures of the medial malleolus and distal fibula. There is disruption of the ankle mortise with posterior lateral displacement of the talus with respect to the tibia. IMPRESSION: Bimalleolar fracture subluxation. XR tibia fibula LT 2V CLINICAL HISTORY: L ankle/leg pain COMPARISON STUDY: Left ankle 11/13/2018. FINDINGS: Bimalleolar left ankle fracture with posterior medial dislocation of the tibiotalar joint. This is better appreciated on the same day ankle radiograph. The proximal to mid fibula and proximal to mid tibia are intact. IMPRESSION: 1. Left ankle bimalleolar fracture/dislocation. This is better appreciated on the same day ankle radiograph. 2. The proximal to mid fibula and tibia are intact. ECG Data Attestation: I personally reviewed and interpreted this ECG as follows: Indication: other (Preop) Rate (beats per minute): 60 Rhythm: normal sinus Blood Pressure Blood Pressure Findings: Elevated blood pressure Blood Pressure Disposition: elevated BP felt to be situational MDM Narrative The patient will require fracture ORIF. Adequate reduction was performed while in the emergency department, and the patient will be admitted for further surgical management. No other acute findings are noted on exam to suggest other injuries from this fall. Neurovascular status remained intact while in the emergency department. Impression & Plan Displaced bimalleolar fracture of left ankle, Fracture dislocation of left ankle, Fall due to slipping on ice or snow Discharge Plan Visit Data *Final* Discharge Date/Time: 11/13/18 16:40 Chief Complaint: Ankle Pain Stated Complaint: FALL,LEFT ANKLE PAIN ED Provider: Ady De Jesus ED Midlevel Provider: Vincent Terrazas Discharge Problem: Displaced bimalleolar fracture of left ankle, Fracture dislocation of left ankle, Fall due to slipping on ice or snow Patient Disposition: Admitted As Inpatient Discharge Instructions Interventions: ED Discharge Assessment Last Done: 11/13/18 16:40
--- NOTE | 2018-11-13 16:46 | Consultation ---
Date of Consultation November 13, 2018 Assessment & Plan (1) Displaced bimalleolar fracture of left ankle: s/p splint application in the ER by [facility]. PT, OT evals tomorrow. Pain control. Dispo planning. Surgical H/P suggests she may not have ORIF until next week. Defer DVT proph to orthopedics; although low risk based on calculator she still likely deserves chemical means given she will be relatively immobile. If patient needs surgical intervention her cardiac risk is very low. She walks twice a day without any limiting cardiopulmonary symptoms. She has no known cardiopulmonary disease. Present on Admission?: Yes (2) Fall due to slipping on ice or snow: (3) Acquired hypothyroidism: Continue synthroid 112mcg daily. Check TSH in am. (4) Depression: Continue home medications. (5) Anxiety: Continue home medications. (6) DVT prophylaxis: defer selection to orthopedics. Thank you for the consult. Will follow with you. History of Present Illness Reason for Consultation: medical management in the setting of left ankle fracture Requesting Physician: Ji Mitchell MD Attending Physician: Ji Mitchell MD History of Present Illness 78yo female with history of hypothyroidism and depression/anxiety who presents after slipping on some ice earlier today at [facility] while walking her 2 dogs. She did not have any preceding dizziness, lightheadedness, vertigo, chest pain, or dyspnea. She had no palpitations. She did not lose consciousness and did not hit her head. Amazingly a bystander got her into her own car and she managed to drive herself home. She then drove from her home to our ER. The patient was seen by orthopedics who applied a splint to the left ankle/leg. I saw her following splint application and she was resting comfortably. Allergies Allergy/AdvReac Type Severity Reaction Status Date / Time Sulfa (Sulfonamide Allergy Intermediate RASH Verified 07/16/16 11:19 Antibiotics) Penicillins Allergy Mild RASH Unverified 07/16/16 11:19 erythromycin base Allergy Unknown RASH Unverified 07/16/16 11:19 Home Medications Home Medications Medication Instructions Recorded Confirmed Type clonazepam 1 mg PO BID PRN 11/13/18 11/13/18 History duloxetine 60 mg PO DAILY 11/13/18 11/13/18 History levothyroxine 112 mcg PO DAILY 11/13/18 11/13/18 History Patient History Medical History Anxiety Hypothyroidism Surgical History No significant past surgical history (Inactive) History of x 2 Family History Father Colon cancer Mother Throat cancer Social History marital status details: ; now in relationship again Current Living Situation: Significant Other Current Living Situation Comment: lives in [place] current occupational status: retired Other Information That Helps Us Care for You: No other: worked at [employer] in [place] Office Feels Safe at Home: Yes Safety Concerns: Feels Safe At This Time Smoking Status: Former smoker Do You Dip or Chew Tobacco: No Smoking End Date: 09/27 ppd x 30 years Second Hand Exposure: No Tobacco Cessation Education Requested by Patient: No Hx Alcohol Use: No Hx Substance Use: No Beliefs That Will Affect Care: None Preferred Language: Citizen Of [place] Communication Ability: Effective Perinatal Technician Required: No Review of Systems Constitutional: no fever, no chills and no fatigue Eyes: no worsening vision Ear, Nose, Mouth, Throat: no hearing loss Respiratory: no dyspnea on exertion Cardiovascular: no chest pain, no chest pain at rest, no chest pain with activity, no dyspnea at rest, no dyspnea on exertion, no orthopnea, no paroxysmal nocturnal dyspnea, no palpitations, no lightheadedness and no syncope Gastrointestinal: no abdominal pain, no nausea and no vomiting Genitourinary (Female): no dysuria Musculoskeletal: + joint pain (left ankle only) Integumentary: no rash Psychiatric: + depression and + anxiety Endocrine: no fatigue Hematologic / Lymphatic: no easy bleeding and no lymphadenopathy Physical Exam 2 Vital Signs (Past 24 Hours): Last Vital Signs Temp 36.8 C 11/13/18 12:56 Pulse 82 11/13/18 16:21 Resp 15 11/13/18 15:01 BP 141/64 H 11/13/18 16:21 Pulse Ox 96 11/13/18 16:21 Constitutional: WD/WN, vitals as above no acute distress Eyes: PERRL ENMT: Ears: + EAC abnormality (ceruman impaction b/l ) Mouth: no oropharynx abnormality and no oral mucosal abnormality Neck: trachea midline Respiratory: normal respiratory effort, lungs clear to auscultation Cardiovascular: RRR, no murmur, no edema Heart Sounds: normal S1 and normal S2 Vessels: posterior tibial pulses present and dorsalis pedis pulses present; no JVD Gastrointestinal (Abdomen): normal bowel sounds, soft, nontender, no hepatosplenomegaly Musculoskeletal: left ankle in splint; splint ends just inferior to the left knee Skin: cap refill of toes, left foot, < 2 sec Neurologic: deep tendon reflexes 2+ bilaterally; no focal motor deficits Psychiatric: A+Ox3, euthymic affect Results & Data Laboratory Results Laboratory Results - last 24 hr 11/13/18 11/13/18 13:50 13:50 WBC 9.40 RBC 4.77 Hgb 14.1 Hct 43.3 MCV 90.8 MCH 29.6 MCHC 32.6 RDW Std Deviation 48.2 H RDW Coeff of Mata 14.6 H Plt Count 188 MPV 12.5 H Sodium 137 Potassium 3.9 Chloride 103 Carbon Dioxide 26 Anion Gap 7.0 BUN 12 Creatinine 0.65 Est Cr Clr Drug Dosing 67.2 Est GFR ( Amer) 97.9 Est GFR (Non-Af Amer) 84.4 BUN/Creatinine Ratio 18.7 Glucose 109 H Calcium 9.0 Diagnostic Findings 1. Left ankle x-rays: DISCUSSION: There are acute fractures of the medial malleolus and distal fibula. There is disruption of the ankle mortise with posterior lateral displacement of the talus with respect to the tibia. IMPRESSION: Bimalleolar fracture subluxation. 2. chest x-ray - no acute process. 3. EKG - my reading - NSR, poor R wave progression, no ST changes. _ (1) Displaced bimalleolar fracture of left ankle Encounter type: initial encounter Fracture type: closed Qualified Code(s): S82.842A - Displaced bimalleolar fracture of left lower leg, initial encounter for closed fracture (2) Fall due to slipping on ice or snow Encounter type: initial encounter Qualified Code(s): W00.9XXA - Unspecified fall due to ice and snow, initial encounter (3) Depression Depression Type: other depression Qualified Code(s): F32.89 - Other specified depressive episodes
--- NOTE | 2018-11-13 17:30 | CT Scan Report ---
CT OF THE LEFT ANKLE WITHOUT CONTRAST CLINICAL HISTORY: Bimalleolar fracture. COMPARISON STUDY: Left ankle radiographs November 13, 2018 at 3:37 PM. TECHNIQUE: Axial images of the left ankle were obtained without IV contrast. Sagittal and coronal rec onstructions were viewed. Automated exposure control was performed for dose reduction. Study was perf ormed according to ALARA principles. FINDINGS: Extensive soft tissue swelling is noted. Tarsometatarsal joints appear intact. There is no calcaneal or talar fracture. Subtalar joint is intact. There is mild posterior and plantar calcaneal spurring. No significant ankle mortise widening is identified posterior reduction. Note is made of an acute mildly displaced comminuted fracture of the base of the medial malleolus. In addition, there i s an acute comminuted mildly displaced distal left fibular fracture that extends from the level the t ibiotalar joint 2.7 cm proximally. In addition, there is a mildly displaced fracture of the anterior aspect of the lateral distal left tibia. No bone fragment within the tibiotalar joint is noted. A sma ll 5 mm bone fragment within the distal tibiofibular syndesmosis is noted. IMPRESSION: 1. Acute comminuted mildly displaced fractures of the base of the medial malleolus, the distal left f ibula and the anterior lateral distal left tibia. No bone fragment within the talar joint. 5 mm bone fragment within the distal tibiofibular articulation. 2. Marked improvement in alignment of the bimalleolar fracture/dislocation since reduction radiograph s. No definite residual ankle mortise widening. Electronically signed by: Vishal Yoder M.D. 11/13/2018 5:29 PM
[2018-11-13] MEDS: OXYCODONE/ACETAMINOPHEN 5mg/325mg TAB PO PRN ×2 (17:48→23:08)
[2018-11-13] MEDS: SODIUM CHLORIDE 0.9% 1000ML 1,000 ML IV SCH (18:36)
[2018-11-13] MEDS ORDERED: DOCUSATE SODIUM 100 MG CAP PO SCH (21:00)
[2018-11-13] MEDS ORDERED: LEVOTHYROXINE SODIUM 112 MCG TABLET PO SCH (21:00)
[2018-11-13] MEDS ORDERED: DULOXETINE HCL 60 MG CAP PO SCH (21:00)
--- NOTE | 2018-11-13 22:13 | Emergency Department Note ---
Entered by Delicia Kee acting as a scribe for Ady De Jesus M.D. ED Visit Note Procedural Sedation Indication Closed ankle redcution. Total time: 10 minutes. Written consent was obtained after the risks and benefits were explained to the patient, including, but not limited to aspiration, allergic reaction, breathing difficulties, cardiac complications, vomiting, pain, event recall, bleeding, and /or infection. Pre-sedation examination and paperwork completed. The patient was on 100% oxygen via NC prior to the procedure. Continous end tidal CO2 monitoring, pulse oximetry, and cardiac monitoring were utilized. Suction, airway equipment, medications, respiratory equipment, and appropriate personnel were prepared prior to the initiation of the procedure. A time out was taken. Sedation was achieved utilizing 40 mg of Propofol. After I observed the patient had reached the appropriate level of sedation the main procedure was performed without complication. Sedation was discontinued and the monitoring continued. The patient recovered quickly from the effects of the medication without complication or adverse event.
--- NOTE | 2018-11-13 22:16 | Emergency Department Note ---
Entered by Delicia Kee acting as a scribe for Ady De Jesus M.D. ED Visit Note Attending Attestation: I Ady De Jesus MD independently saw and evaluated this patient and agree with history and physical is otherwise documented by the physician entry level administrative assistant. See their note for full details. L Charlie mal frx. Sedation for ortho closed reduction. Procedure below. Consents completed. No apparent complications. Procedural Sedation Indication Closed ankle reduction Total time: 10 minutes. Written consent was obtained after the risks and benefits were explained to the patient, including, but not limited to aspiration, allergic reaction, breathing difficulties, cardiac complications, vomiting, pain, event recall, bleeding, and /or infection. Pre-sedation examination and paperwork completed. The patient was onoxygen via NC prior to the procedure. Continous end tidal CO2 monitoring, pulse oximetry, and cardiac monitoring were utilized. Suction, airway equipment , medications, respiratory equipment, and appropriate personnel were prepared prior to the initiation of the procedure. A time out was taken. Sedation was achieved utilizing 40 mg of Propofol. After I observed the patient had reached the appropriate level of sedation the main procedure was performed without complication. Sedation was discontinued and the monitoring continued. The patient recovered quickly from the effects of the medication without complication or adverse event. The scribe's documentation has been prepared under my direction and personally reviewed by me in its entirety. I confirm that the note above accurately reflects all work, treatment, procedures, and medical decision making performed by me.
--- NOTE | 2018-11-13 23:41 | Operative Report ---
DATE OF OPERATION: 11/13/2018 PREPROCEDURAL DIAGNOSIS: Dislocated bimalleolar left ankle fracture, closed. POSTPROCEDURAL DIAGNOSIS: Dislocated bimalleolar left ankle fracture, closed. PROCEDURE PERFORMED: Closed reduction and short leg splint application for dislocated left bimalleolar ankle fracture. SURGEON: Ji Courtney MD ASSISTANTS: Paul Alex PA-C and Gucci Lucas PA-C ESTIMATED BLOOD LOSS: Zero. SPECIMENS: None. COMPLICATIONS: None. IMPLANTS: None. INDICATIONS: This patient is a 78-year-old female who slipped walking her dogs this morning on the ice. She had immediate onset of pain and deformity. She was brought to the Emergency Room where x-rays demonstrated a dislocated bimalleolar ankle fracture on the left. This is a closed injury; however, she has bruising and tenting of the skin medially. A closed reduction is indicated to realign her ankle, relieve her pain and take pressure off of the skin on the medial aspect of the ankle. Risks and benefits of the procedure were explained to the patient at length. All questions were answered. Informed consent was signed. DESCRIPTION OF PROCEDURE: The patient was given intravenous sedation by the Emergency Room physician. Once she was asleep, using a gentle longitudinal traction and a reduction maneuver involving medial displacement of the hindfoot and lateral malleolus, the ankle was reduced. She was placed in a posterior and stirrup splint which was molded to hold the ankle reduced. Hard copy films were brought in while the splint was hardening, which verified reduction and proper molding of the splint material. Great care was taken to avoid any pressure on the splint over the medial malleolus. Once the Orthoglass material had dried, she was placed on 3 pillows to elevate her ankle. The patient tolerated the procedure well. She was neurovascularly intact after the procedure. POSTPROCEDURE PLAN: Case was discussed with Dr. Ji Mitchell, my partner. I am leaving out of town early tomorrow morning and he will assume her care starting with her hospitalization this evening which is indicated to help with pain control as well as early mobilization. Further treatment including surgical versus nonsurgical treatment will be dictated by Dr. Mitchell. Please see his notes for further care of this patient. I attest to the content of the Intraoperative Record and any orders documented therein. Any exception s are noted below.
[2018-11-14] MEDS: SODIUM CHLORIDE 0.9% 1000ML 1,000 ML IV SCH ×3 (01:00→14:19)
[2018-11-14] MEDS ORDERED: CEFAZOLIN 2000MG 2,000 MG/15 ML SYR IV SCH ×2 (06:00)
[2018-11-14] MEDS: OXYCODONE/ACETAMINOPHEN 5mg/325mg TAB PO PRN ×2 (07:44→14:42)
[2018-11-14] MEDS ORDERED: ENOXAPARIN INJ 40 MG/0.4 ML SYR SQ SCH (09:45)
--- NOTE | 2018-11-14 10:22 | Orthopedic Progress Note ---
Date of Service November 14, 2018 Assessment & Plan (1) Displaced bimalleolar fracture of left ankle: Left ankle fracture/dislocation Splint intact Continue ice and elevation left ankle May be out of bed, nonweight bearing left lower extremity Use walker to assist with ambulation PT today - gait training, will assess for safety for home Case management for disposition No surgery planned today, will follow the next couple days and plan to schedule for sometime next week if skin and swelling allow Patient understands and agrees with the plan. Continue splint. Trimmed edges with cast saw today. Will discuss findings with Dr. Mitchell, plan for discharge to home later today if safe. Walker and wheelchair script placed on chart. Follow up Tuesday as scheduled. Call [phone] with questions. Present on Admission?: Yes Subjective Patient doing well. No complaints of pain at rest of her left ankle. Able to move toes left foot. Pain relieved with elevation and ice. Denies other injuries, denies chest pain or shortness of breath. Tolerating a regular diet. Daughter at bedside. Patient states that she would like to go home if not having surgery. She has a Handicapped accessible home and lives with her spouse and feels that she'd be fine at home. Denies numbness or tingling left foot. Splint comfortable. Physical Exam 2 Vital Signs (Past 24 Hours): Last Vital Signs Temp 37.3 C 11/14/18 07:16 Pulse 87 11/14/18 07:16 Resp 16 11/14/18 07:16 BP 93/56 L 11/14/18 07:16 Pulse Ox 92 11/14/18 07:16 Physical Exam: Left ankle elevated on pillows. Moves toes, distal sensation normal. Splint seems to be tight around her big toe, no pressure or pain, but trimmed with cast saw today. Toes warm, cap refill brisk. Skin around splint edges intact. Results & Data Laboratory Results 11/13/18 11/13/18 11/13/18 Range/Units 13:50 13:50 13:50 WBC 9.40 (4.8-10.8) K/uL RBC 4.77 (4.2-5.4) M/uL Hgb 14.1 (12.0-16.0) g/dL Hct 43.3 (37-47) % MCV 90.8 (80-100) fL MCH 29.6 (25-34) pg MCHC 32.6 (32-36) g/dL RDW Std Deviation 48.2 H (36.4-46.3) fL RDW Coeff of Mata 14.6 H (11.5-14.5) % Plt Count 188 (130-400) K/uL MPV 12.5 H (7.4-10.4) fL Sodium 137 (136-145) mmol/L Potassium 3.9 (3.5-5.1) mmol/L Chloride 103 (98-107) mmol/L Carbon Dioxide 26 (21-32) mmol/L Anion Gap 7.0 (3-11) BUN 12 (7-18) mg/dl Creatinine 0.65 (0.6-1.2) mg/dl Est Cr Clr Drug Dosing 67.2 ml/min Est GFR ( Amer) 97.9 Est GFR (Non-Af Amer) 84.4 BUN/Creatinine Ratio 18.7 (10-20) Glucose 109 H (70-99) mg/dl Calcium 9.0 (8.5-10.1) mg/dl TSH Cancelled 0.398 (0.300-4.500) uIu/ml Diagnostic Findings CT OF THE LEFT ANKLE WITHOUT CONTRAST CLINICAL HISTORY: Bimalleolar fracture. COMPARISON STUDY: Left ankle radiographs November 13, 2018 at 3:37 PM. TECHNIQUE: Axial images of the left ankle were obtained without IV contrast. Sagittal and coronal reconstructions were viewed. Automated exposure control was performed for dose reduction. Study was performed according to ALARA principles. FINDINGS: Extensive soft tissue swelling is noted. Tarsometatarsal joints appear intact. There is no calcaneal or talar fracture. Subtalar joint is intact. There is mild posterior and plantar calcaneal spurring. No significant ankle mortise widening is identified posterior reduction. Note is made of an acute mildly displaced comminuted fracture of the base of the medial malleolus. In addition, there is an acute comminuted mildly displaced distal left fibular fracture that extends from the level the tibiotalar joint 2.7 cm proximally. In addition, there is a mildly displaced fracture of the anterior aspect of the lateral distal left tibia. No bone fragment within the tibiotalar joint is noted. A small 5 mm bone fragment within the distal tibiofibular syndesmosis is noted. IMPRESSION: 1. Acute comminuted mildly displaced fractures of the base of the medial malleolus, the distal left fibula and the anterior lateral distal left tibia. No bone fragment within the talar joint. 5 mm bone fragment within the distal tibiofibular articulation. 2. Marked improvement in alignment of the bimalleolar fracture/dislocation since reduction radiographs. No definite residual ankle mortise widening. _ (1) Displaced bimalleolar fracture of left ankle Encounter type: initial encounter Fracture healing: Fracture type: closed Open fracture type: Qualified Code(s): S82.842A - Displaced bimalleolar fracture of left lower leg, initial encounter for closed fracture
--- NOTE | 2018-11-14 10:37 | Discharge Summary ---
Date of Service November 14, 2018 Admission HPI Per Admitting Provider This 78 yo F presents to ED today with severe ankle pain with obvious deformity. Injury occurred when she slipped on the ice while walking her dogs this AM. Patient states that she was unable to stand or ambulate after the injury occurred. Patient has no other complaint. She denies CP, SOB, nausea, vomiting, LOC, syncope, vertigo, head trauma, neck pain, numbness/tingling in her Left ankle/foot. Discharge Data Consultations 11/13/18 15:51 Consult Case Management - Discharge Planning Routine Consult Hospitalist Stat 11/13/18 16:17 ED Decision to Admit Stat Hospital Course (1) Bimalleolar fracture of left ankle: Patient was admitted to the hospital after falling and injuring left ankle. She was unable to get up and ambulate after her fall. She had immediate pain and deformity. Was brought to the ED, x-rays taken, found to have an ankle fracture/dislocation. In the ED, her ankle was reduced by Dr. Courtney and she was placed in a splint. She was admitted for pain control, ambulation training with PT and potential surgery on 11/14/18. It was determined that we should wait for surgical intervention to allow for resolution of swelling and evaluation of her skin preoperatively. A CT scan was ordered of her left ankle for surgical preparation. She was given a regular diet, which she toleratd well during her stay. She was allowed out of bed, non weight bearing left lower extremity. She was started on Lovenox 40 mg daily on 11/14/18 for DVT prophylaxis. A physical therapy consult was placed for gait training and assessment of safety to return to her home. Recommendations for ice and elevation to help with pain control and swelling management. Her pain was controlled with Percocet. Her splint was trimmed on . She was deemed safe for home and was discharged to her home on 11/14/18 in stable condition. She will follow up on Tuesday and plans for surgery next week. All questions were answered, discharge instructions were provided. Discharge Instructions as per EMR
--- NOTE | 2018-11-14 15:14 | Hospitalist Progress Note ---
Date of Service November 14, 2018 Assessment & Plan (1) Displaced bimalleolar fracture of left ankle: S/p splint application in the ER by [facility]. Plan for surgery next week after the swelling goes down. (2) Hypotension: BP noted to be 90/50 this morning from 140/65 yesterday. No major concerns /complaints with it. Likely due to some of the pain medications vs. possibly the BP was elevated yesterday from pain. - No concerns for discharge. (3) Fall due to slipping on ice or snow: (4) Acquired hypothyroidism: TSH was within normal limits. Continued synthroid 112mcg daily. (5) Depression: Continue home medications. (6) Anxiety: Continue home medications. (7) DVT prophylaxis: Defer selection to orthopedics. Subjective Feeling well this morning. No complaints. BP is slightly lower than yesterday, but overall, doing well. No lightheadedness, dizziness, or other symptoms from the BP. Physical Exam 2 Vital Signs (Past 24 Hours): Last Vital Signs Temp 37.3 C 11/14/18 07:16 Pulse 87 11/14/18 07:16 Resp 16 11/14/18 07:16 BP 93/56 L 11/14/18 07:16 Pulse Ox 92 11/14/18 07:16 Constitutional: WD/WN, vitals as above no acute distress Eyes: PERRL ENMT: Ears: + EAC abnormality (ceruman impaction b/l ) Mouth: no oropharynx abnormality and no oral mucosal abnormality Neck: trachea midline Respiratory: normal respiratory effort, lungs clear to auscultation Cardiovascular: RRR, no murmur, no edema Heart Sounds: normal S1 and normal S2 Vessels: posterior tibial pulses present and dorsalis pedis pulses present; no JVD Gastrointestinal (Abdomen): normal bowel sounds, soft, nontender, no hepatosplenomegaly Neurologic: deep tendon reflexes 2+ bilaterally; no focal motor deficits Psychiatric: A+Ox3, euthymic affect _ (1) Displaced bimalleolar fracture of left ankle Encounter type: initial encounter Fracture healing: Fracture type: closed Open fracture type: Qualified Code(s): S82.842A - Displaced bimalleolar fracture of left lower leg, initial encounter for closed fracture (2) Fall due to slipping on ice or snow Encounter type: initial encounter Qualified Code(s): W00.9XXA - Unspecified fall due to ice and snow, initial encounter (3) Depression Depression Type: other depression Major depression recurrence: Active/ Remission status: Major depression episode severity: Psychotic features: Trimester: Qualified Code(s): F32.89 - Other specified depressive episodes
--- NOTE | 2018-11-14 17:16 | Progress Note ---
DATE: 11/14/2018 I met with the patient today. I discussed with her the nature of the injury that she has. I reviewed with her the plan. We talked about prevention of constipation. DVT prophylaxis. Follow up Tuesday. Strict elevation and nonweightbearing. We talked a little bit about surgery and rehab and recovery. We discussed the rationale for delaying surgery to next week because of the ankle fracture dislocation and the possibility for substantial swelling. Surgery may need to be delayed even further than that. I reviewed the Medicine note as well as her labs, which appear to be in proper order. Medically she is ready to go. I have seen and evaluated her x-rays and CT scan. The CT shows a minor shell posterior malleolar fracture. Minimally comminuted medial malleolar fracture. This is a large fragment which would be suitable for internal fixation. She has a distal, but not significantly comminuted lateral malleolar fracture which would benefit from a distal fibular locking plate. The ankle syndesmosis is intact. There are some minor other fractures about the distal tibia, which I do not think are of clinical consequence.
== END 2018-11-14 16:09 | disposition home health service (06) | DRG 494 ==
LOC: ED 12:37 → 3N 15:46

== ENCOUNTER 2018-11-28 11:03 | Inpatient (IN) ==
--- NOTE | 2018-11-16 09:14 | Anesthesiology Consultation ---
Date of Service November 16, 2018 Assessment & Plan Plan: Patient not seen at PAT/no RN phone interview at time of chart review; will need to review PMHX/PSHX AM DOS. Chart Review Chart Review: Acceptable Risk for Surgery (PENDING EVALUATION AM DOS) and Patient NOT seen in Pre Admission Testing History Surgery Operation Date: 11/21/18 07:00 Proposed Procedures p Right Ankle Fracture Open Reduction Internal Fixation - Ji Mitchell MD Height/Weight Height: 5 ft 3 in Weight: 73 kg Allergies Allergy/AdvReac Type Severity Reaction Status Date / Time Sulfa (Sulfonamide Allergy Intermediate RASH Verified 07/16/16 11:19 Antibiotics) Penicillins Allergy Mild RASH Unverified 07/16/16 11:19 erythromycin base Allergy Unknown RASH Unverified 07/16/16 11:19 Medications Home Medications Medication Instructions Recorded Confirmed Last Taken clonazepam 1 mg PO BID PRN 11/13/18 11/13/18 Unknown duloxetine 60 mg PO DAILY 11/13/18 11/13/18 Unknown levothyroxine 112 mcg PO DAILY 11/13/18 11/13/18 Unknown enoxaparin 40 mg SUBCUT QAM #7 ml 11/14/18 Unknown oxycodone-acetaminophen [Percocet] 1 - 2 tab PO Q4H PRN #30 tab 11/14/18 Unknown Past Medical History Medical History Anxiety Depression History of ankle fracture BIMALLEOLAR LEFT ANKLE FRACTURE (REASON FOR PROCEDURE) History of skin cancer BCC Hypothyroidism Osteoporosis Past Family History Family History Father Colon cancer Mother Throat cancer Past Surgical History Surgical History No significant past surgical history (Inactive) History of x 2 History of open reduction and internal fixation (ORIF) procedure DISTAL RADIUS ORIF= 07/30/16= RIGHT AXILLARY PNB AT [facility] Social History Smoking Status: Former smoker Hx Alcohol Use: No Hx Substance Use: No substance use type: does not use Testing Electrocardiogram Date: 11/13/18 NSR at 60bpm. Possible anterior infarct (cited on/before 07/29/16 per cardio) Chest X-Ray Date: 11/13/18 Findings: + NAD There are low lung volumes. Hazy appears to the left lung base persists and favors prominent mediastinal fat. Laboratory Results 11/13/18 WBC 9.40 H/H 14.1/43.3 PLATELETS 188 SODIUM 137 POTASSIUM 3.9 CHLORIDE 103 CO2 26 BUN 12 CREATININE 0.65 GLUCOSE 109
[~2018-11-28 11:03] MED LIST changes: -ANTI-ANXIETY MED PO; +CEFAZOLIN 1000MG 1,000 MG/7.5 ML SYR IV SCH; +CEFAZOLIN 2000MG 2,000 MG/15 ML SYR IV SCH; -CHOL1000 PO; -CYAN250T PO; -DULO-24 PO; -LEVO25TA PO; +LR 15ML/HR IV SCH; -MULT-513 PO; +ROPIVACAINE 0.5% 5 MG/ML 30 ML VIAL ONE
[2018-11-28] MEDS ORDERED: LIDOCAINE HCL 2% 2 ML VIAL/AMP(20MG/ML) INFIL ONE (11:39)
[2018-11-28] MEDS ORDERED: MIDAZOLAM HCL 1 MG/ML 2ML VIAL ONE (11:39)
[2018-11-28] MEDS ORDERED: fentaNYL citrate 100 MCG/2 ML VIAL ONE (11:39)
[2018-11-28] MEDS ORDERED: PROPOFOL IV EMULSION 10 MG/ML 20 ML VIAL IV ONE (11:39)
[2018-11-28] MEDS ORDERED: BUPIVACAINE/EPINEPHRINE 0.5% MPF 1:200,000 30 ML VIAL ONE (12:09)
[2018-11-28] MEDS ORDERED: DEXAMETHASONE SOD INJ 4 MG/ML VIAL ONE (12:09)
[2018-11-28] MEDS ORDERED: CEFAZOLIN 2000MG 2,000 MG/15 ML SYR IV ONE (12:11)
[2018-11-28] MEDS ORDERED: POVIDONE-IODINE OP SOLN 30 ML BTL ONE (12:16)
[2018-11-28] MEDS ORDERED: LIDOCAINE HCL 1% 20 ML VIAL ONE (12:16)
--- NOTE | 2018-11-28 12:27 | History & Physical Bridge Note ---
Date of Service November 28, 2018 History & Physical Bridge Note I have examined the patient, reviewed the History & Physical and in the interval since the performance of the History & Physical I have noted the following changes of clinical significance: no changes noted
[2018-11-28] MEDS ORDERED: ePHEDrine sulfate 50 MG/ML SYR ONE (12:54)
[2018-11-28] MEDS ORDERED: ONDANSETRON INJ 2 MG/ML 2 ML VIAL ONE (12:54)
[2018-11-28] MEDS ORDERED: PHENYLEPHRINE 100MCG/ML 5ML SYR ONE (12:54)
[2018-11-28] MEDS ORDERED: ePHEDrine sulfate 50 MG/ML AMP IV PRN (12:58)
[2018-11-28] MEDS ORDERED: ONDANSETRON INJ 2 MG/ML 2 ML VIAL IV PRN ×2 (12:58→16:16)
[2018-11-28] MEDS ORDERED: ATROPINE SULFATE 0.1 MG/ML 10ML SYR IV PRN (12:58)
[2018-11-28] MEDS ORDERED: fentaNYL citrate 100 MCG/2 ML VIAL IV PRN (12:58)
--- NOTE | 2018-11-28 14:37 | Fluoroscopy Report ---
FL ankle LT min 3V RTN CLINICAL HISTORY: ORIF LT ANKLE FX COMPARISON STUDY: 11/13/2017 FLUOROSCOPY TIME: 29 seconds NUMBER OF FLUOROSCOPIC IMAGES: 5 FINDINGS: Findings consistent with open reduction internal fixation of the medial malleolus as well a s distal fibula. Alignment is anatomic. Ankle mortise is aligned anatomically. IMPRESSION: Anatomic alignment post open reduction internal fixation. The above report was generated using voice recognition software. It may contain grammatical, syntax or spelling errors. Electronically signed by: Mayo Fitzpatrick M.D. 11/28/2018 2:35 PM
--- NOTE | 2018-11-28 15:36 | Operative Report ---
Post Operative Report Pre & Post Diagnosis Operation Date: 11/28/18 13:00 Pre-Op Diagnosis: Left Ankle trimalleolar fracture / Dislocation Post-Op Diagnosis: Left Ankle trimalleolar fracture / Dislocation Procedure Operation Date: 11/28/18 13:00 Actual Procedures p Left Ankle Fracture Open Reduction Internal Fixation medial and lateral malleoli (Left) - Ji Mitchell MD Surgeon Ji Mitchell MD Engineer Specialist Yajaira Augustin Estimated Blood Loss 5 Findings Consistent with Post-Op Diagnosis Specimens None Anesthesia Type General Regional Complications none Disposition Accompanied Patient To Recovery: No Disposition: Recovery Room Indications Patient is a 78-year-old female status post a trimalleolar fracture dislocation of her left ankle. This happened 2 weeks ago. Her posterior fracture is a very small shell type avulsion. She has minimally comminuted medial and lateral malleolar fractures. Her surgery has been delayed due to swelling and blistering medially and the need for the soft tissue envelope to calm down. Her Lovenox was stopped 48 hours ago. She is been seen and evaluated by medicine and anesthesia. Description of Procedure Informed consent obtained. Patient identified. She identified the operative site as the left ankle. I marked with my initials. Preop surgical timeout performed. Preop dose of IV antibiotics given. She was positioned supine with a tourniquet on her left thigh. A 1 x 1.5 cm blister was completely dried up on the medial side of the ankle. Skin wrinkles are present. Edema was trace to 1+. There were black and yellow discoloration throughout the ankle and leg consistent with her resolving hematoma. The left leg was pre-scrubbed and then prepped and draped in the usual sterile fashion. DVT prophylaxis with early mobility foot pumps and Lovenox. The limb was exsanguinated with the Esmarch. Tourniquet inflated to 250 mmHg. A lateral incision of about 12 cm in length was made. Blunt dissection was per formed to the subcutaneous tissues. The lateral incision paralleled the distal fibula. The superficial peroneal nerve was identified coursing fairly low across the fracture site just above the fracture actually. It was identified and dissected out proximally and distally. Proximally it was dissected out and up to above the fibular plate. At the conclusion of the procedure the nerve was laying in the posterior soft tissue flap just below the incision. It coursed along the posterior aspect of the fibular plate and then crossed over at the fourth hole distal to the proximal end of the plate. Subperiosteal exposure of the fracture was then performed. Due to the length of time there was a fair amount of granulation tissue and more surgical dissection was necessary to mobilize the distal fragment. The fracture site was opened and cleaned of organizing hematoma and early fracture callus. The bony ends were freshened. The anterior ankle joint was identified and 2 small pieces of com minution which could have come from the fibula or distal tibia were removed. Irrigation was performed. The fracture was then anatomically reduced with a bone forcep. It was fixated with a 3.5 mm bicortical lag screw. I also provisionally held in place with a percutaneous K wire. A Synthes distal fibular locking plate was aligned. There was a longer band medialward at the distal end of her fibula and therefore the plate sat a little bit more proximal. This enabled 3 screws to be inserted distally. A proximal screw was inserted in the shaft to bring the plate down to the bone. This kept the plate aligned and flushed to the bone distally. 3 unicortical locking screws were placed distally and 2 additional bicortical locking screws proximally. At the conclusion of the procedure the syndesmosis was stressed and found to be stable. Attention was turned to the medial side of the ankle where a 6 cm longitudinal incision was made curving anterior at its distal aspect. Blunt dissection was performed down to the subcutaneous tissues the saphenous neurovascular structures were not encountered. The fracture site was opened and subperiosteally exposed along its margin. The hematoma and early fracture callus were cleaned out of the bone and the ends were freshened. It was then held reduced with a bone forcep and guide pins were introduced for the 4.0 cannulated screws and adjusted x1. The posterior tibial tendon was identified and noted to be intact posteriorly. The fracture site was irrigated. After assessing the reduction and positioning of the hardware on the fluoroscope to 40 mm long threaded screws were inserted after opening the near cortex with a reamer. The bites were excellent. Fracture comminution was minimal to absent. Tourniquet was then let down and meticulous hemostasis was performed. On the medial side was able to close a lap of soft tissue over the fracture site which was likely some hypertrophied subcutaneous tissue. This was done with a 3-0 Vicryl. The skin was then closed meticulously avoiding touching the epidermal layer with the forceps. Careful attention to care of the skin at all times was performed when retracting and manipulating. The subcutaneous tissues were closed with 4-0 nylon and then vishnu. On the lateral side the nerve was as mentioned previously. There was not a lot of subcutaneous tissue present. I was able to cover the plate distally with 3-0 Vicryl and periosteum for the distal third. Proximally there was just no deeper tissues available. The skin was then closed with 4-0 Vicryl followed by vishnu. Cleaned with wet and dry sponges and soft sterile dressing was applied with abundant padding 4 x 4's Xeroform ABD cast padding and a posterior splint with U stirrup ankle in neutral position. She was then awakened from anesthesia without difficulty and taken to the recovery room in stable condition. There were no specimens or complications. Blood loss was approximately 5 cc. At the conclusion the operation spoke patient's family informed of my findings and give detailed postoperative instructions. May consider alf facility versus is [facility] inpatient rehab. Start Lovenox in the morning. She will need to be nonweightbearing for approximately 1 month. At 1 month we could initiate weightbearing with anticipated full weightbearing by about 6 weeks postoperatively. We will eventually get her to do range of motion as tolerated once the incision is healed. I attest to the content of the Intraoperative Record and any orders documented therein. Any exceptions are noted below.
--- NOTE | 2018-11-28 15:42 | Operative Report ---
Post Operative Report Pre & Post Diagnosis Operation Date: 11/28/18 13:00 Pre-Op Diagnosis: Left Ankle Fracture / Dislocation Post-Op Diagnosis: Left Ankle Fracture / Dislocation Procedure Operation Date: 11/28/18 13:00 Actual Procedures p Left Ankle Fracture Open Reduction Internal Fixation(Left) - Ji Mitchell MD Surgeon Kulwinder Holman. Housekeeping Laundry Worker Yajaira Augustin PA-C Estimated Blood Loss 5 Findings Consistent with Post-Op Diagnosis Specimens None Anesthesia Type General Regional Complications none Disposition Accompanied Patient To Recovery: No Description of Procedure She was taken to the operating room and placed under general anesthesia with a peripheral nerve block. Timeout was performed. She was prepped and draped in routine sterile fashion. I was present during the entire case, please see Dr. Mitchell's operative report for further detail. Patient was awakened and transferred to the recovery room in stable condition. I attest to the content of the Intraoperative Record and any orders documented therein. Any exceptions are noted below.
--- NOTE | 2018-11-28 15:52 | Anesthesiology Progress Note ---
Date of Service November 28, 2018 Anesthesia Post Procedure Vital Signs Vital Signs: Temp Pulse Pulse Resp BP Pulse Ox 11/28/18 15:50 69 16 119/58 L 95 11/28/18 15:40 79 16 118/62 98 11/28/18 15:30 75 14 123/56 L 98 11/28/18 15:24 36.0 C L 84 17 140/69 98 11/28/18 11:42 36.9 C 75 20 122/79 91 Pain Intensity Left Ankle: Pain Intensity: 1 Notes Mental Status: alert / awake / arousable Patient Amnestic to Procedure: Yes Nausea / Vomiting: adequately controlled Pain: adequately controlled Airway Patency, RR, SpO2: stable & adequate BP & HR: stable & adequate Hydration State: stable & adequate Anesthetic Complications: no major complications apparent and Pt Satisfied with anesthetic care Notes: The patient is awake and comfortable. Her vitals are stable.
[2018-11-28] MEDS ORDERED: MAGNESIUM HYDROXIDE SUSP 30 ML UDC PO PRN (16:16)
[2018-11-28] MEDS ORDERED: SOD PHOSPHATE/SOD BIPHOSPHATE ENEMA 132 ML BTL PR PRN (16:16)
[2018-11-28] MEDS ORDERED: BISACODYL 10 MG SUPP PR PRN (16:16)
[2018-11-28] MEDS ORDERED: METOCLOPRAMIDE HCL INJ 5 MG/ML 2 ML VIAL IV PRN (16:16)
[2018-11-28] MEDS: D5W AND 1/2NSS + 20MEQ KCL 20 MEQ/1,000 ML BAG IV SCH (17:14)
[2018-11-28] MEDS ORDERED: CEFAZOLIN 2000MG 2,000 MG/15 ML SYR IV SCH (20:00)
[2018-11-28] MEDS: ACETAMINOPHEN 500 MG TAB PO SCH (20:43)
[2018-11-28] MEDS: DOCUSATE SODIUM 100 MG CAP PO SCH (20:43)
[2018-11-29] MEDS: D5W AND 1/2NSS + 20MEQ KCL 20 MEQ/1,000 ML BAG IV SCH ×3 (02:51→21:00)
[2018-11-29] MEDS: ACETAMINOPHEN 500 MG TAB PO SCH ×3 (05:44→20:59)
[2018-11-29] MEDS: LEVOTHYROXINE SODIUM 112 MCG TABLET PO SCH (05:44)
[2018-11-29 05:55] LABS: Hematocrit (blood only) 37.7 % (37-47); Hemoglobin 12.2 g/dL (12.0-16.0); Immature Granulocytes # (auto) 0.02 K/uL (0.00-0.02); Immature Granulocytes % (auto) 0.2 %; Lymphocytes % (auto) 13.9 %; Mean Corpuscular Hgb Conc 32.4 g/dL (32-36); Mean Corpuscular Volume 91.7 fL (80-100); Mean Platelet Volume 12.4 fL (7.4-10.4); Monocytes # (auto) 0.82 K/uL (0.11-0.59); Monocytes % (auto) 6.7 %; Neutrophils % (auto) 79.2 %; Platelet Count 286 K/uL (130-400); RDW Coefficient of Variation 15.1 % (11.5-14.5); RDW Standard Deviation 50.5 fL (36.4-46.3); Red Blood Count 4.11 M/uL (4.2-5.4); White Blood Count 12.24 K/uL (4.8-10.8)
[2018-11-29 06:10] LABS: Partial Thromboplastin Ratio 1.1; Partial Thromboplastin Time 29.2 Seconds (21.0-31.0); Prothrombin Time 10.6 Seconds (9.0-12.0)
[2018-11-29 06:31] LABS: Est GFR (African American) 101.6; Est GFR (Non-African American) 87.7
--- NOTE | 2018-11-29 08:32 | Anesthesiology Progress Note ---
Date of Service November 29, 2018 Anesthesia Post Procedure Vital Signs Vital Signs: Temp Pulse Pulse Resp BP Pulse Ox 11/29/18 08:00 36.4 C L 68 16 121/74 94 11/29/18 03:55 36.6 C 71 16 98/61 L 95 11/28/18 22:45 36.6 C 68 16 108/64 94 11/28/18 19:09 86 18 118/70 92 11/28/18 18:43 83 18 113/72 93 11/28/18 17:00 68 18 116/68 95 11/28/18 16:29 74 18 103/64 91 11/28/18 16:00 36.6 C 81 16 117/67 95 11/28/18 15:50 69 16 119/58 L 95 11/28/18 15:40 79 16 118/62 98 11/28/18 15:30 75 14 123/56 L 98 11/28/18 15:24 36.0 C L 84 17 140/69 98 11/28/18 11:42 36.9 C 75 20 122/79 91 Pain Intensity Left Ankle: Pain Intensity: 0 Abdomen: Pain Intensity: 2 Notes Mental Status: alert / awake / arousable and participated in evaluation Patient Amnestic to Procedure: Yes Nausea / Vomiting: adequately controlled Pain: adequately controlled Airway Patency, RR, SpO2: stable & adequate BP & HR: stable & adequate Hydration State: stable & adequate Anesthetic Complications: no major complications apparent and Pt Satisfied with anesthetic care
[2018-11-29] MEDS: DOCUSATE SODIUM 100 MG CAP PO SCH ×2 (09:00→20:59)
[2018-11-29] MEDS: ENOXAPARIN INJ 40 MG/0.4 ML SYR SQ SCH (09:00)
--- NOTE | 2018-11-29 11:08 | Orthopedic Progress Note ---
Date of Service November 29, 2018 Assessment & Plan (1) Fracture dislocation of left ankle: Postoperative day one-status post ORIF left trimalleolar ankle fracture. She is doing well, we will continue to monitor the decreased sensation that she has an her foot. The splint was left in place at this time. Most likely the peripheral nerve block that she had is continuing to work. We will recheck on her senstation this afternoon. Encouraged elevation. She needs to remain nonweightbearing left lower extremity. I saw her left lower extremity. Use walker to assist with transfers and short distances for ambulation. Otherwise needs to be in the wheelchair. Lovenox was resumed this morning for DVT prophylaxis which we will continue for 2-4 weeks after surgery. Pain is well-controlled as she is not really having any pain at this time. Bowel regimen medications are ordered and informed patient to ask if necessary. Case management was by to see patient in she initially wanted to go home but after discussion has agreed to go to a alf facility or rehabilitation. Case management was updated and will return to see her later this morning to discuss options. Continue to monitor her sensation into today and will plan for discharge to a possible alf facility tomorrow. Continue PT/OT All questions were answered. Intraoperative findings were discussed and x-rays were reviewed with her and her daughter today. Dr. Mitchell present for today's visit. We will reevaluate tomorrow. Present on Admission?: Yes Subjective Patient is sitting up in her wheelchair. Daughter in her room. She states that she has no pain of her left foot Or ankle. She thinks that the block is still working as she does not have feeling In her toes. Splint is comfortable. She is tolerated a regular diet. She states that she had some abdominal muscle cramping throughout the night which did not allow her to get much sleep. She seems that is resolved today. She has been up with physical therapy and "hopped 12 times" and states that she got a little lightheaded while doing that. She's better now. She denies chest pain, shoortness of breath, constipation, diarrhea, abdominal pain. Physical Exam Vital Signs (Past 24 Hours): Last Vital Signs Temp 36.4 C L 11/29/18 08:00 Pulse 68 11/29/18 08:00 Resp 16 11/29/18 08:00 BP 121/74 11/29/18 08:00 Pulse Ox 94 11/29/18 08:00 Physical Exam: Exam of her left ankle and lower extremity. She is able to straight leg raise. She tolerates full range of motion of her left knee. She has no left knee effusion. She is mildly tender with palpation on the medial and lateral aspects of her lower thigh. There is no ecchymosis appreciated. Her toes are visible. She has excellent capillary refill. Toes are warm. She is unable to move her toes. She has decreased sensation especially in the big toe and to the small toe. She has some mild tingling sensations on the dorsal and plantar aspect of her foot she states it is not normal. Unable to test strength that she is unable to move her toes currently. Results & Data Laboratory Results 11/29/18 11/29/18 11/29/18 Range/Units 05:24 05:24 05:24 WBC 12.24 H (4.8-10.8) K/uL RBC 4.11 L (4.2-5.4) M/uL Hgb 12.2 (12.0-16.0) g/dL Hct 37.7 (37-47) % MCV 91.7 (80-100) fL MCH 29.7 (25-34) pg MCHC 32.4 (32-36) g/dL RDW Std Deviation 50.5 H (36.4-46.3) fL RDW Coeff of Mata 15.1 H (11.5-14.5) % Plt Count 286 (130-400) K/uL MPV 12.4 H (7.4-10.4) fL Immature Gran % (Auto) 0.2 % Neut % (Auto) 79.2 % Lymph % (Auto) 13.9 % [place] % (Auto) 6.7 % Eos % (Auto) 0.0 % Baso % (Auto) 0.0 % Immature Gran # (Auto) 0.02 (0.00-0.02) K/uL Neut # (Auto) 9.70 H (1.4-6.5) K/uL Lymph # (Auto) 1.70 (1.2-3.4) K/uL [place] # (Auto) 0.82 H (0.11-0.59) K/uL Eos # (Auto) 0.00 (0-0.5) K/uL Baso # (Auto) 0.00 (0-0.2) K/uL PT (9.0-12.0) Seconds INR (0.9-1.1) APTT (21.0-31.0) Seconds PTT Ratio Creatinine 0.58 L (0.6-1.2) mg/dl Est Cr Clr Drug Dosing 75.0 ml/min Est GFR ( Amer) 101.6 Est GFR (Non-Af Amer) 87.7 25-OH Vitamin D Total 48.4 (30-100) ng/ml 11/29/18 Range/Units 05:24 WBC (4.8-10.8) K/uL RBC (4.2-5.4) M/uL Hgb (12.0-16.0) g/dL Hct (37-47) % MCV (80-100) fL MCH (25-34) pg MCHC (32-36) g/dL RDW Std Deviation (36.4-46.3) fL RDW Coeff of Mata (11.5-14.5) % Plt Count (130-400) K/uL MPV (7.4-10.4) fL Immature Gran % (Auto) % Neut % (Auto) % Lymph % (Auto) % [place] % (Auto) % Eos % (Auto) % Baso % (Auto) % Immature Gran # (Auto) (0.00-0.02) K/uL Neut # (Auto) (1.4-6.5) K/uL Lymph # (Auto) (1.2-3.4) K/uL [place] # (Auto) (0.11-0.59) K/uL Eos # (Auto) (0-0.5) K/uL Baso # (Auto) (0-0.2) K/uL PT 10.6 (9.0-12.0) Seconds INR 1.0 (0.9-1.1) APTT 29.2 (21.0-31.0) Seconds PTT Ratio 1.1 Creatinine (0.6-1.2) mg/dl Est Cr Clr Drug Dosing ml/min Est GFR ( Amer) Est GFR (Non-Af Amer) 25-OH Vitamin D Total (30-100) ng/ml
[2018-11-29] MEDS: OXYCODONE HCL IR 5 MG TAB (IMMEDIATE RELEASE) PO PRN ×2 (18:09→18:50)
[2018-11-30] MEDS: LEVOTHYROXINE SODIUM 112 MCG TABLET PO SCH (05:47)
[2018-11-30] MEDS: ACETAMINOPHEN 500 MG TAB PO SCH ×2 (05:47→13:49)
[2018-11-30] MEDS: D5W AND 1/2NSS + 20MEQ KCL 20 MEQ/1,000 ML BAG IV SCH (05:47)
[2018-11-30 07:28] LABS: Basophils # (auto) 0.03 K/uL (0-0.2); Basophils % (auto) 0.4 %; Eosinophils # (auto) 0.23 K/uL (0-0.5); Eosinophils % (auto) 3.2 %; Hemoglobin 12.1 g/dL (12.0-16.0); Immature Granulocytes # (auto) 0.01 K/uL (0.00-0.02); Immature Granulocytes % (auto) 0.1 %; Lymphocytes # (auto) 2.69 K/uL (1.2-3.4); Lymphocytes % (auto) 37.3 %; Mean Corpuscular Hgb Conc 31.8 g/dL (32-36); Mean Corpuscular Volume 93.6 fL (80-100); Mean Platelet Volume 12.1 fL (7.4-10.4); Monocytes # (auto) 0.73 K/uL (0.11-0.59); Monocytes % (auto) 10.1 %; Neutrophils # (auto) 3.52 K/uL (1.4-6.5); Neutrophils % (auto) 48.9 %; Platelet Count 264 K/uL (130-400); RDW Coefficient of Variation 15.4 % (11.5-14.5); RDW Standard Deviation 52.6 fL (36.4-46.3); Red Blood Count 4.06 M/uL (4.2-5.4); White Blood Count 7.21 K/uL (4.8-10.8)
[2018-11-30] MEDS: ENOXAPARIN INJ 40 MG/0.4 ML SYR SQ SCH (07:59)
[2018-11-30] MEDS: DOCUSATE SODIUM 100 MG CAP PO SCH (07:59)
--- NOTE | 2018-11-30 11:23 | Orthopedic Progress Note ---
Date of Service November 30, 2018 Assessment & Plan (1) Fracture dislocation of left ankle: Postop day 2-status post ORIF left ankle fracture Continue nonweightbearing left lower extremity and the assistance of a walker for ambulation. Allowed for range of motion of her left knee and hip. PT and OT as ordered. Case management for disposition, currently authorization pending for [facility]. Hopefully discharge later today. Continue Lovenox for DVT prophylaxis as ordered. Pain medication as prescribed Apparently there is some home medications that have not been ordered this admission and they would like them started while at [facility]. I will add this to the discharge instructions. They will follow-up as scheduled and know to call with any questions or concerns in the meantime. Present on Admission?: Yes Subjective Patient doing well. States that she feels more like herself today. Denies any chest pain or shortness of breath. States that her sensation in her left foot is returned to normal. She is comfortable in the splint. Her daughter is at the bedside. She is tolerating a regular diet. Physical Exam Vital Signs (Past 24 Hours): Last Vital Signs Temp 36.6 C 11/30/18 06:01 Pulse 64 11/30/18 06:01 Resp 16 11/30/18 06:01 BP 118/76 11/30/18 06:01 Pulse Ox 95 11/30/18 09:05 Physical Exam: Exam of her left foot reveals her left ankle in a splint. She is able to wiggle her toes. She has good dorsiflexion and plantar flexion and strength is normal. Distal sensation is normal capillary refill is brisk. Dorsalis pedis pulses 1+. Left ankle is elevated on pillows. Nontender around her left knee or thigh. She was seen and evaluated by myself as well as Dr. Mitchell. Results & Data Laboratory Results 11/30/18 Range/Units 06:50 WBC 7.21 (4.8-10.8) K/uL RBC 4.06 L (4.2-5.4) M/uL Hgb 12.1 (12.0-16.0) g/dL Hct 38.0 (37-47) % MCV 93.6 (80-100) fL MCH 29.8 (25-34) pg MCHC 31.8 L (32-36) g/dL RDW Std Deviation 52.6 H (36.4-46.3) fL RDW Coeff of Mata 15.4 H (11.5-14.5) % Plt Count 264 (130-400) K/uL MPV 12.1 H (7.4-10.4) fL Immature Gran % (Auto) 0.1 % Neut % (Auto) 48.9 % Lymph % (Auto) 37.3 % [place] % (Auto) 10.1 % Eos % (Auto) 3.2 % Baso % (Auto) 0.4 % Immature Gran # (Auto) 0.01 (0.00-0.02) K/uL Neut # (Auto) 3.52 (1.4-6.5) K/uL Lymph # (Auto) 2.69 (1.2-3.4) K/uL [place] # (Auto) 0.73 H (0.11-0.59) K/uL Eos # (Auto) 0.23 (0-0.5) K/uL Baso # (Auto) 0.03 (0-0.2) K/uL
[2018-11-30] MEDS ORDERED: clonazePAM 1 MG TAB PO PRN (11:28)
--- NOTE | 2018-11-30 11:38 | Discharge Summary ---
Date of Service November 30, 2018 Discharge Data Consultations 11/28/18 16:16 Consult Case Management - Discharge Planning Routine Procedures Performed Operation Date: 11/28/18 13:00 Actual Procedures p Left Ankle Fracture Open Reduction Internal Fixation(Left) - Ji Mitchell MD Hospital Course (1) Fracture dislocation of left ankle: Patient was admitted to [facility] on November 28, 2018 after undergoing an open reduction internal fixation of the left subacute ankle fracture. She fell approximately 2 weeks ago sustaining a left ankle fracture dislocation which was reduced in the emergency room. She did have some skin issues after that and surgery was postponed briefly. She had surgery on November 28, [address] Ji Mitchell. She tolerated the procedure well. Her surgery was performed with general anesthesia and a peripheral nerve block. She was given 1 g of IV Ancef for surgical prophylaxis preoperatively, and this was continued for 2 doses afterwards. She was given a regular diet after surgery and tolerated that fine. She did not develop any postoperative complications b esides some lingering paresthesias in these did return to normal late in the day on postoperative day 1. She was allowed out of bed, nonweightbearing left lower extremity with a splint in place. She was instructed to use a walker to assist with ambulation. She was seen and evaluated by physical therapy and Occupational Therapy. technical services librarian and case management also saw and evaluated the patient. It was determined that she would benefit [facility] or inpatient rehab. Was determined that due to her needs a [place] [facility] facility would be the best option. Referrals were placed for [facility]. Insurance authorization was obtained. Postoperatively her laboratory work was stable, her H&H was stable and no transfusions were necessary. Vitals remained stable during her inpatient stay. On postoperative day 2 her sensation was completely normal and pulses were good. She also requested that we start some home medications that he she had stopped on her own and wanted to resume either in the hospital today or when she went to [facility]. Those were ordered. Her Lovenox 40 mg daily was resumed for DVT prophylaxis and this will continue for 2-4 weeks after surgery. Her follow-up appointment is scheduled with Dr. Mitchell on December 11, 2018. Discharge instructions were provided and reviewed. They know to call with any problems questions or concerns. She was discharged to [facility] in stable condition on November 30, 2018. Discharge Instructions As per EMR
[2018-11-30] MEDS ORDERED: clonazePAM 1 MG TAB PO SCH (21:00)
[2018-11-30] MEDS ORDERED: DULOXETINE HCL 60 MG CAP PO SCH (21:00)
== END 2018-11-30 16:49 | DRG 494 ==
LOC: ASU 11:03 → 3E 15:39